=== PATIENT | female | born 1930 | race Caucasian/White ===

== ENCOUNTER 2017-03-29 15:58 | Emergency (ER) | payer MEDICARE, OTHER ==
[2017-03-29 17:03] VITALS: BP 178/83
== END 2017-03-29 17:27 | disposition home or self-care (01) ==
LOC: ER 15:58
PROC: 0T9B70Z Drainage of Bladder with Drainage Device, Via Natural or Artificial Opening (ICD-10-PCS; principal; 2017-03-29)
DX: Z46.6 Encounter for fitting and adjustment of urinary device (principal)

== ENCOUNTER 2017-05-04 07:01 | Emergency (ER) | payer MEDICARE, OTHER ==
--- NOTE | 2017-05-04 07:42 | ERNOTE ---
ER Female HPI Stated Complaint: CATH CAME OUT Time Seen by Provider: 05/04/17 07:34 Source: patient Exam Limitations: no limitations Immunizations: IMMUNIZATION HX Immunizations Up to Date Yes History of Influenza Vaccine Yes Hx Pneumococcal Vaccination Yes Allergies/Adverse Reactions: Allergies morphine Allergy (Verified 05/04/17 07:14) Lactose intolerant Allergy (Uncoded 05/04/17 07:14) Home Medications: HOME MEDICATIONS Gabapentin 400 mg PO HS 08/13/16 [Last Taken Unknown] Gabapentin 800 mg PO QID 08/13/16 [Last Taken Unknown] Oxybutynin Chloride [Ditropan] 10 mg PO DAILY 08/13/16 [Last Taken Unknown] Aspirin 81 mg PO DAILY 11/30/16 [Last Taken Unknown] Cyanocobalamin [Vitamin B-12] 1,000 mcg PO DAILY 05/04/17 [Last Taken Unknown] - History of Present Illness Narrative: Pt states her catheter came out. She has had a catheter since last July and has been doing well except for an occasional episode such as this. Activities at Onset: Present: sleep Review of Systems - Review of Systems Constitutional: Absent: recent illness, fever, chills Gastrointestinal/Abdominal: Present: constipation. Absent: nausea, vomiting, abdominal pain Genitourinary: Absent: pain, decreased urinary output - Patient's Past Medical History Patient History - Medical: No pertinent hx, Other Patient History - Cardiac/Respiratory: No pertinent hx Patient History - Cancer: No Hx of Cancer Patient History - Surgical Procedures: Appendectomy, Cholecystectomy, Hysterectomy, T & A, Other Patient History - Other: None - Family History Mother Family History - Cardiac/Respiratory: CHF Father Family History - Cardiac/Respiratory: CHF - Social History Living Situations: care home Psych History: No pertinent hx Does anyone smoke in the home?: No Alcohol Use: none Drug Use: none - Immunizations Immunizations Up to Date: Yes Hx Pneumococcal Vaccination: Yes History of Influenza Vaccine: Yes Physical Exam - Physical Exam General Appearance: Present: wd/wn, alert, no apparent distress Head Exam: Present: normal inspection, no evidence of injury Eye Exam: Normal inspection: bilateral Neck: Present: supple, full range of motion Respiratory: Present: no respiratory distress, no accessory muscle use Gastrointestinal/Abdominal: Present: normal bowel sounds, nontender, nondistended, soft Extremity Exam: Present: normal inspection, no edema Neurological Exam: Present: alert, oriented, normal mood/affect, no motor/ sensory deficits Skin Exam: Present: normal color, warm/dry ED Progress - Results and Orders Patient's Lab Results:: I have reviewed the patient's lab results. - Vital Signs Patient's Vital Signs:: I have reviewed the patient's vital signs. Vital Signs: Vital Signs 05/04/17 07:10 Temperature 36.5 C Pulse Rate 67 Respiratory 12 Rate Blood Pressure 175/75 O2 Sat by Pulse 93 Oximetry - Progress/Reassessment Chief Complaint: Genitourinary Problem Progress Note-Subjective: RN replaced catheter without difficulty Departure Clinical Impression: Saini catheter problem Qualifiers: Encounter type: initial encounter Qualified Code(s): T83.9XXA - Unspecified complication of genitourinary prosthetic device, implant and graft, initial encounter - Departure Disposition: Home self-care Condition: Good Instructions: Saini Catheter Care, Adult Additional Instructions: Follow up with your regular doctor as necessary. Referrals: Pacheco Bundy DO [Primary Care Provider] -
[2017-05-04 08:15] VITALS: BP 164/68
== END 2017-05-04 08:16 | disposition home or self-care (01) ==
LOC: ER 07:01
PROC: 0T9B70Z Drainage of Bladder with Drainage Device, Via Natural or Artificial Opening (ICD-10-PCS; principal; 2017-05-04)
DX: T83.9XXA Unspecified complication of genitourinary prosthetic device, implant and graft, initial encounter (principal)

== ENCOUNTER 2017-05-28 09:44 | Emergency (ER) | payer MEDICARE, OTHER ==
[2017-05-28] MEDS ORDERED: SULFAMETHOXAZOLE/TRIMETHOPRIM 1 TAB TABLET PO ONE (10:31)
[2017-05-28] MEDS ORDERED: SULFAMETHOXAZOLE/TRIMETHOPRIM 1 TAB TABLET ONE (10:33)
--- NOTE | 2017-05-28 10:42 | ERNOTE ---
ER Female HPI Date of Service: 05/28/17 Stated Complaint: CATH CHANGE Presenting Symptoms: dysuria Time Seen by Provider: 05/28/17 10:08 Source: patient, RN notes reviewed, past records Exam Limitations: no limitations Immunizations: IMMUNIZATION HX Immunizations Up to Date Yes History of Influenza Vaccine Yes Hx Pneumococcal Vaccination Yes Allergies/Adverse Reactions: Allergies morphine Allergy (Verified 05/28/17 09:54) Lactose intolerant Allergy (Uncoded 05/28/17 09:54) Home Medications: HOME MEDICATIONS Gabapentin 400 mg PO HS 08/13/16 [Last Taken Unknown] Gabapentin 800 mg PO QID 08/13/16 [Last Taken Unknown] Oxybutynin Chloride [Ditropan] 10 mg PO DAILY 08/13/16 [Last Taken Unknown] Aspirin 81 mg PO DAILY 11/30/16 [Last Taken Unknown] Cyanocobalamin [Vitamin B-12] 1,000 mcg PO DAILY 05/04/17 [Last Taken Unknown] HYDROcodone/ACETAMINOPHEN [[place] 10-325 Tablet] 1 each PO DAILY 05/28/17 [Last Taken Unknown] Naproxen Sodium 220 mg PO HS 05/28/17 [Last Taken Unknown] Sulfamethoxazole/Trimethoprim [Bactrim Ds] 1 tab PO BID #20 tab 05/28/17 [Last Taken Unknown] - History of Present Illness Narrative: 86 year old female brought to the ED from the [facility] to have her Saini catheter changed. After the [facility] was contacted by nursing staff, it was discovered that a UA was done yesterday because the patient had been reporting dysuria. Her preliminary culture shows gram negative bacilli. Aside from the dysuria she is reporting vague abdominal discomfort. Prior Abdominal Problems: Present: similar symptoms Prior Treatment: Absent: recently seen, currently on antibiotics Review of Systems - Review of Systems Constitutional: Absent: recent illness, fever, chills, malaise EYE: Present: no symptoms reported ENT: Present: no symptoms reported Respiratory: Absent: shortness of breath, cough Cardiology: Absent: chest pain, edema Gastrointestinal/Abdominal: Absent: nausea, vomiting, diarrhea, constipation Genitourinary: Present: dysuria. 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, paraplegia Patient History - Cardiac/Respiratory: Valvular Heart Disease Patient History - Cancer: No Hx of Cancer Patient History - Surgical Procedures: Appendectomy, Cholecystectomy, Hysterectomy, T & A, Other Patient History - Other: None LMP (females 10-50): Menopausal - Family History Mother Family History - Cardiac/Respiratory: CHF Father Family History - Cardiac/Respiratory: CHF - Social History Living Situations: assisted living Psych History: No pertinent hx Does anyone smoke in the home?: No Smoking Status: Never smoker Alcohol Use: none Drug Use: none - Immunizations Immunizations Up to Date: Yes Hx Pneumococcal Vaccination: Yes History of Influenza Vaccine: Yes Physical Exam - Physical Exam General Appearance: Present: wd/wn, alert, no apparent distress Respiratory: Present: no respiratory distress, normal breath sounds, no accessory muscle use, lungs clear Cardiovascular/Chest: Present: regular rate, rhythm, no murmur, normal peripheral pulses Gastrointestinal/Abdominal: Present: normal bowel sounds, nontender, nondistended, soft Neurological Exam: Present: alert, oriented, normal mood/affect Skin Exam: Present: normal color, warm/dry ED Progress - Vital Signs Patient's Vital Signs:: I have reviewed the patient's vital signs. Vital Signs: Vital Signs 05/28/17 09:50 Temperature 36.2 C L Pulse Rate 81 Respiratory 12 Rate Blood Pressure 166/65 O2 Sat by Pulse 93 Oximetry - Progress/Reassessment Chief Complaint: Genitourinary Problem Progress:: Improved Progress Note-Subjective: 05/28/17 10:37 Saini catheter changed. Prelim UC shows gram negative bacilli - last culture in 08/07 grew e.coli that was resistant to Cipro, but sensitive to Bactrim which has been started here. Dr. Bundy's office contacted regarding results/ treatment for the UA he had ordered and for a standing order to have her Saini changed in the [facility] rather than having to come to the ED. Departure Clinical Impression: Urinary catheter (Saini) change required Urinary tract infection associated with indwelling urethral catheter Qualifiers: Encounter type: initial encounter Qualified Code(s): T83.511A - Infection and inflammatory reaction due to indwelling urethral catheter, initial encounter; N39.0 - Urinary tract infection, site not specified; N39.0 - Urinary tract infection, site not specified - Departure Disposition: [facility] self-care Condition: Good Instructions: Catheter-Associated Urinary Tract Infection FAQs - VINCENT Additional Instructions: Continue your routine medications Have your urine retested after your antibiotic is finished Dr. Bundy's office was contacted for an order to have your catheter changes done in the [facility] Referrals: Pacheco Bundy, DO [Primary Care Provider] - Prescriptions: Sulfamethoxazole/Trimethoprim [Bactrim Ds] 1 tab PO BID #20 tab
[2017-05-28 10:54] VITALS: BP 164/62
== END 2017-05-28 10:54 | disposition home or self-care (01) ==
LOC: ER 09:44
PROC: 0T2BX0Z Change Drainage Device in Bladder, External Approach (ICD-10-PCS; principal; 2017-05-28)
DX: Z46.6 Encounter for fitting and adjustment of urinary device (principal); T83.511A Infection and inflammatory reaction due to indwelling urethral catheter, initial encounter; D39.0 Neoplasm of uncertain behavior of uterus; G37.9 Demyelinating disease of central nervous system, unspecified; G82.20 Paraplegia, unspecified; I35.8 Other nonrheumatic aortic valve disorders

== ENCOUNTER 2017-06-05 10:01 | Emergency (ER) | payer MEDICARE, OTHER ==
--- NOTE | 2017-06-05 10:29 | ERNOTE ---
Medical Problem HPI - General Time Seen by Provider: 06/05/17 10:26 Source: patient Exam Limitations: no limitations - Immun/Allergies/Home Medications Immunizations: IMMUNIZATION HX Immunizations Up to Date Yes History of Influenza Vaccine Yes Hx Pneumococcal Vaccination Yes Allergies/Adverse Reactions: Allergies morphine Allergy (Verified 06/05/17 10:30) Lactose intolerant Allergy (Uncoded 06/05/17 10:30) Home Medications: HOME MEDICATIONS Gabapentin 400 mg PO HS 08/13/16 [Last Taken Unknown] Gabapentin 800 mg PO QID 08/13/16 [Last Taken Unknown] Oxybutynin Chloride [Ditropan] 10 mg PO DAILY 08/13/16 [Last Taken Unknown] Aspirin 81 mg PO DAILY 11/30/16 [Last Taken Unknown] Cyanocobalamin [Vitamin B-12] 1,000 mcg PO DAILY 05/04/17 [Last Taken Unknown] HYDROcodone/ACETAMINOPHEN [[place] 10-325 Tablet] 1 each PO DAILY 05/28/17 [Last Taken Unknown] Naproxen Sodium 220 mg PO HS 05/28/17 [Last Taken Unknown] Sulfamethoxazole/Trimethoprim [Bactrim Ds] 1 tab PO BID #20 tab 05/28/17 [Last Taken Unknown] Nitrofurantoin/Nitrofuran Mac [Macrobid] 100 mg PO Q12H 10 Days #20 cap [Last Taken Unknown] - History of Present History Narrative: pt has an indwelling catheter and has had some discomfort in the catheter site in the perineum. Denies any burning on urination. She is on Bactrim DS. She states her "bottom" hurts when she leans forward only. Denies any fevers, chills nausea or vomiting. 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 Patient History - Cardiac/Respiratory: Valvular Heart Disease Patient History - Cancer: No Hx of Cancer Patient History - Surgical Procedures: Appendectomy, Cholecystectomy, Hysterectomy, T & A, Other Patient History - Other: None - Family History Mother Family History - Cardiac/Respiratory: CHF Father Family History - Cardiac/Respiratory: CHF - Social History Psych History: No pertinent hx - Immunizations Immunizations Up to Date: Yes Hx Pneumococcal Vaccination: Yes History of Influenza Vaccine: Yes Physical Exam - Physical Exam General Appearance: Present: wd/wn, alert, no apparent distress Head Exam: Present: normal inspection, no evidence of injury Ears, Nose, Throat: Present: normal ENT inspection Neck: Present: normal inspection Respiratory: Present: no respiratory distress, normal breath sounds, no accessory muscle use, chest nontender, lungs clear Cardiovascular/Chest: Present: regular rate, rhythm, no murmur, normal peripheral pulses Gastrointestinal/Abdominal: Present: normal bowel sounds, nontender, nondistended, soft, no organomegaly. Absent: tenderness Pelvic Exam: Present: other - examination of the perineum reveals that the Saini catheter is in the proper area the site of insertion appears slightly hyperemic but there is no discharge there is no anomalies noted. There are no lesions. Back Exam: Present: normal inspection, no CVA tenderness Plan - Plan Plan: This patient's urinalysis reveals that the patient has positive nitrites while on a sulfa antibiotic. At this time to sulfa antibiotic will be stopped patient will be begun on Macrobid 100 mg 1 by mouth twice a day and follow-up with her primary care physician. Departure Clinical Impression: UTI (urinary tract infection) Qualifiers: Urinary tract infection type: site unspecified Hematuria presence: with hematuria Qualified Code(s): N39.0 - Urinary tract infection, site not specified ; R31.9 - Hematuria, unspecified; R31.9 - Hematuria, unspecified - Departure Disposition: Home self-care Condition: Good Instructions: Urinary Tract Infection, Adult, [id number] Referrals: Pacheco Bundy DO [Primary Care Provider] - Prescriptions: Nitrofurantoin/Nitrofuran Mac [Macrobid] 100 mg PO Q12H 10 Days #20 cap
[2017-06-05 11:05] LABS: Urine Bilirubin Negative (NEGATIVE); Urine Blood 50 /ul (NEGATIVE); Urine Ketone Negative (NEGATIVE); Urine Protein Negative (NEGATIVE); Urine Urobilinogen Normal (NORMAL)
[2017-06-05 11:20] LABS: Urine Appearance Clear; Urine Color Yellow; Urine Nitrite Positive (NEGATIVE)
[2017-06-05 11:21] LABS: Urine Bacteria TRACE
[2017-06-05 11:39] VITALS: BP 132/60
== END 2017-06-05 11:36 | disposition home or self-care (01) ==
LOC: ER 10:01
DX: N39.0 Urinary tract infection, site not specified (principal); R31.9 Hematuria, unspecified

== ENCOUNTER 2017-08-28 09:31 | Emergency (ER) | payer MEDICARE, OTHER ==
[2017-08-28 09:41] VITALS: BP 159/75
--- NOTE | 2017-08-28 09:48 | ERNOTE ---
ER Female HPI Stated Complaint: CATH CHANGE Presenting Symptoms: other - patient inadvertently pulled out her Saini catheter Time Seen by Provider: 08/28/17 09:41 Source: patient, family Exam Limitations: no limitations Immunizations: IMMUNIZATION HX Immunizations Up to Date Yes History of Influenza Vaccine Yes Hx Pneumococcal Vaccination Yes Allergies/Adverse Reactions: Allergies morphine Allergy (Verified 08/28/17 09:37) Lactose intolerant Allergy (Uncoded 08/28/17 09:37) Home Medications: HOME MEDICATIONS Gabapentin 400 mg PO HS 08/13/16 [Last Taken Unknown] Gabapentin 800 mg PO QID 08/13/16 [Last Taken Unknown] Oxybutynin Chloride [Ditropan] 10 mg PO DAILY 08/13/16 [Last Taken Unknown] Aspirin 81 mg PO DAILY 11/30/16 [Last Taken Unknown] Cyanocobalamin [Vitamin B-12] 1,000 mcg PO DAILY 05/04/17 [Last Taken Unknown] HYDROcodone/ACETAMINOPHEN [[place] 10-325 Tablet] 1 each PO DAILY 05/28/17 [Last Taken Unknown] Naproxen Sodium 220 mg PO HS 05/28/17 [Last Taken Unknown] - History of Present Illness Timing: Present: constant Radiation: Present: none Activities at Onset: Present: none Sexual [employer] History: Present: not active Associated Symptoms: Present: denies symptoms Review of Systems - Review of Systems Constitutional: Present: See HPI EYE: Present: no symptoms reported ENT: Present: no symptoms reported Respiratory: Present: no symptoms reported Cardiology: Present: no symptoms reported Gastrointestinal/Abdominal: Present: no symptoms reported Genitourinary: Present: See HPI Musculoskeletal: Present: no symptoms reported Skin: Present: no symptoms reported Neurological: Present: no symptoms reported Endocrine: Present: no symptoms reported Hematologic/Lymphatic: Present: no symptoms reported Psych: Present: no symptoms reported - Patient's Past Medical History Patient History - Medical: Osteoarthritis, Osteoporosis, UTI'S, Other - transverse myelitis, 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 Patient History - Cardiac/Respiratory: Valvular Heart Disease Patient History - Cancer: No Hx of Cancer Patient History - Surgical Procedures: Appendectomy, Cholecystectomy, Hysterectomy, T & A, Other Patient History - Other: None LMP (females 10-50): Menopausal - Family History Mother Family History - Cardiac/Respiratory: CHF Father Family History - Cardiac/Respiratory: CHF - Social History Abuse History: No History of abuse Psych History: No pertinent hx Smoking Status: Never smoker Have you smoked in the past 12 months: No Do you dip or chew tobacco: No Alcohol Use: none Drug Use: none - Immunizations Immunizations Up to Date: Yes Hx Pneumococcal Vaccination: Yes History of Influenza Vaccine: Yes Physical Exam - Physical Exam General Appearance: Present: wd/wn, alert, no apparent distress Head Exam: Present: normal inspection Eye Exam: Normal inspection: bilateral, PERRL: bilateral Ears, Nose, Throat: Present: normal ENT inspection, H, normal pharynx Neck: Present: normal inspection, nontender Respiratory: Present: no respiratory distress, normal breath sounds, no accessory muscle use, chest nontender, lungs clear Cardiovascular/Chest: Present: regular rate, rhythm, no murmur, normal peripheral pulses Gastrointestinal/Abdominal: Present: normal bowel sounds, nontender, nondistended, soft, no organomegaly Rectal Exam: Present: deferred Back Exam: Present: normal inspection, normal range of motion Extremity Exam: Present: normal inspection, non-tender, no edema, normal range of motion Neurological Exam: Present: alert, oriented, normal mood/affect Skin Exam: Present: normal color, warm/dry Lymphatic Exam: Present: no adenopathy ED Progress - Vital Signs Patient's Vital Signs:: I have reviewed the patient's vital signs. Vital Signs: Vital Signs 08/28/17 09:38 Temperature 36.2 C L Pulse Rate 94 Respiratory 18 Rate Blood Pressure 159/75 O2 Sat by Pulse 94 Oximetry - Progress/Reassessment Chief Complaint: Genitourinary Problem Plan - Plan Plan: Patient had a new Saini catheter put in place with the caveat to have her be a little more careful with the catheter in the future. Departure Clinical Impression: Saini catheter problem Qualifiers: Encounter type: initial encounter Qualified Code(s): T83.9XXA - Unspecified complication of genitourinary prosthetic device, implant and graft, initial encounter - Departure Disposition: Home self-care Condition: Good Instructions: Saini Catheter Care, Adult Referrals: Pacheco Bundy DO [Primary Care Provider] -
== END 2017-08-28 10:11 | disposition home or self-care (01) ==
LOC: ER 09:31
PROC: 0T9B70Z Drainage of Bladder with Drainage Device, Via Natural or Artificial Opening (ICD-10-PCS; principal; 2017-08-28)
DX: T83.098A Other mechanical complication of other urinary catheter, initial encounter (principal); Z87.440 Personal history of urinary (tract) infections

== ENCOUNTER 2020-02-03 21:45 | Inpatient (IN) ==
--- NOTE | 2020-02-03 21:49 | ERNOTE ---
Abdominal HPI - General Chief Complaint: Abdominal Pain Time Seen by Provider: 02/03/20 21:49 Source: patient, EMS notes reviewed Exam Limitations: no limitations - Immun/Allergies/Home Medications Immunizatons: IMMUNIZATION HX Immunizations Up to Date Yes History of Influenza Vaccine Yes Hx Pneumococcal Vaccination Yes Allergies/Adverse Reactions: Allergies morphine Allergy (Verified 02/03/20 21:52) Lactose intolerant Allergy (Intermediate, Uncoded 02/03/20 21:52) Per patient.lb Home Medications: HOME MEDICATIONS Aspirin [Aspirin EC] 81 mg PO DAILY 01/22/18 [Last Taken Unknown] cranberry 400 mg capsule 400 mg PO DAILY 05/30/18 [Last Taken Unknown] lactobacillus combination no.8 3 billion cell capsule 3,000 mmu cells PO DAILY 09/21/19 [Last Taken Unknown] multivitamin 1 tab PO DAILY 09/21/19 [Last Taken Unknown] gabapentin 400 mg capsule 400 mg PO HS #1 cap 01/05/20 [Last Taken Unknown] gabapentin 800 mg tablet 800 mg PO QID #1 tab 01/05/20 [Last Taken Unknown] sennosides 8.6 mg tablet 4.3 mg PO HS tab 01/25/20 [Last Taken Unknown] - History of Present Illness Narrative: Patient is an 89-year-old white female, resident of the [place], with multiple past medical issues and multiple ER visits in the past, began with significant dizziness and right lower quadrant pain today. Her symptoms progressively got worse throughout the day and was associated with some chest discomfort and shortness of breath so she called EMS who transported her to our ER. In route they noted she was 86% on room air that went to 97% on 2 L nasal cannula. Her in the ER she was 92% on room air. Heart rate was in the 100s and patient did appear pale though was alert and oriented. She denies any fevers or chills, cough, diarrhea, hematochezia or melena. She has had more heartburn lately. She has tested positive for UTI twice in the last couple weeks and is been on 2 different antibiotics the latest being Macrobid. She has had an indwelling catheter for the last 5 years. She is on no PPI or H2 blockers and she does take an aspirin on a regular basis. Timing: getting worse Quality: moderate Activities at Onset: none Modifying Factors - (Improves): Present: rest, lying down Modifying Factors - (Worsens): Present: sitting up, movement Associated Symptoms: Present: chest pain, heartburn, nausea, shortness of breath, weakness. Absent: diaphoresis, diarrhea-gross blood, diarrhea-mucous, fever/chills, vomiting, swelling/mass in abdomen, syncope Prior Abdominal Problems: Present: similar symptoms Prior Treatment: Present: recently seen, treated by physician, currently on antibiotics Review of Systems - Review of Systems Constitutional: Absent: fever, chills EYE: Absent: blurred vision, double vision ENT: Absent: ear pain, nose congestion, sore throat Respiratory: Present: shortness of breath. Absent: cough, orthopnea, wheezing, stridor, other Cardiology: Present: chest pain, palpitations. Absent: syncope, edema, claudication Gastrointestinal/Abdominal: Present: nausea, constipation, abdominal pain. Absent: vomiting, diarrhea Genitourinary: Absent: dysuria, hematuria, decreased urinary output Musculoskeletal: Absent: back pain, muscle pain, muscle stiffness Skin: Absent: rash, dryness Neurological: Present: dizziness/light-headedness, weakness, tingling. 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/2016 [facility] Mitral valve disorder (Chronic) Onset Date: 1993 prolapse Lesion of lumbar spine (Chronic) Onset Date: Unknown Arthritis (Chronic) Onset Date: 2011 Hypervitaminosis D (Chronic) Onset Date: 07/2017 Hemorrhoids (Chronic) Onset Date: Unknown 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 Chest wall contusion (Acute) Urinary tract infection (Chronic) Lower extremity weakness (Chronic) Weakness of lower extremity (Chronic) Spinal cord lesion (Acute) Saini catheter problem (Acute) Urinary tract infection associated with indwelling urethral catheter (Acute) Urinary catheter (Saini) change required (Acute) UTI symptoms (Acute) hx of hemorrhoid surgery (Acute) Dislodged Saini catheter (Acute) Paraplegia (Chronic) Onset Date: Unknown Osteoporosis (Chronic) Onset Date: Unknown Neurogenic bowel (Chronic) Onset Date: Unknown Macular degeneration (Chronic) Onset Date: Unknown Kyphosis (Chronic) Onset Date: Unknown IBS (irritable bowel syndrome) (Chronic) Onset Date: Unknown Hyperlipidemia (Chronic) Onset Date: Unknown UTI (urinary tract infection) (Chronic) Onset Date: Unknown Surgical History: Surgical History (Last Reviewed 02/03/20 @ 22:19 by Bird Nicolas MD) FHx: FLETCHER-BSO (total abdominal hysterectomy and bilateral salpingo-oophorectomy) Onset Date: ~1986 H/O hemorrhoidectomy Onset Date: 1991 H/O laminectomy Onset Date: Unknown History of YAG laser capsulotomy of lens Onset Date: ~2008 Hx of appendectomy Onset Date: ~1986 Hx of cataract surgery Onset Date: ~2007 Hx of cholecystectomy Onset Date: 03/12/09 Loss of teeth due to extraction Onset Date: Unknown Family History: Family History (Last Reviewed 02/03/20 @ 22:19 by Bird Nicolas MD) Father , age 86 COPD (chronic obstructive pulmonary disease) CHF (congestive heart failure) Mother , age 83 CHF (congestive heart failure) Diabetes Social History: (Last Reviewed 02/03/20 @ 22:19 by Bird Nicolas MD) Social History: snf: Yes Marital status: lives independently: No household members: spouse current occupational status: retired Highest education level completed: high school graduate Service: No Tobacco: Smoking Status: Never smoker second hand exposure: No Alcohol: alcohol intake: never Substance Use: substance use type: does not use Dietary Habits: caffeine: Yes caffeine comment: everyday Exercise: Physical activity type: none frequency: does not exercise Physical Exam - Physical Exam General Appearance: Present: wd/wn, alert, mild distress, other - Pale-appearing Head Exam: Present: normal inspection, no evidence of injury Eye Exam: Normal inspection: bilateral, PERRL: bilateral, EOMI: bilateral, Conjunctivae pale: bilateral Ears, Nose, Throat: Present: normal except -, dry mucous membranes Neck: Present: supple Respiratory: Present: no respiratory distress, normal breath sounds, no accessory muscle use, chest nontender, lungs clear Cardiovascular/Chest: Present: tachycardia, systolic murmur - 5/6 right upper sternal border Gastrointestinal/Abdominal: Present: normal bowel sounds, soft, no organomegaly, tenderness - Mild right lower quadrant, distended. Absent: guarding, rebound Rectal Exam: Present: nontender, normal rectal tone, black stool - That is firm, but a paucity of it in the rectum, hemorrhoids, other - Heme positive stool. Absent: blood-streaked stool Back Exam: Present: normal inspection Extremity Exam: Present: normal except -, extremity edema - 2+ pitting edema Neurological Exam: Present: alert, oriented, no motor/sensory deficits, other - Tired appearing and dysphoric Skin Exam: Present: cool/dry, pallor Progress - Results and Orders Patient's Lab Results:: I have reviewed the patient's lab results. Results and Orders: Hemoglobin is critical at 4.1 Hemoccult positive Laboratory Tests 02/03/20 22:00 Urine Color Yellow Urine Appearance Slightly cloudy Urine pH 7.0 Ur Specific [place] 1.015 Urine Protein Negative Urine Glucose (UA) Negative Urine Ketones Negative Urine Blood Negative Urine Nitrate Negative Urine Bilirubin Negative Urine Urobilinogen Normal Ur Leukocyte Esterase 75 H Urine RBC None seen Urine WBC 0-5 Ur Epithelial Cells 0-5 Urine Bacteria 1+ H Urine Yeast Moderate - 2+ H Urine Culture Comments Culture to follow Laboratory Tests 02/03/20 22:00 Sodium 138 Plasma Sodium 139 Potassium 3.8 Chloride 106 Carbon Dioxide 23.4 L Anion Gap 12.4 BUN 17 D Creatinine 0.80 Est GFR (Non-Af Amer) 72 D BUN/Creatinine Ratio 21.3 Random Glucose 145 H Calcium 8.2 Calcium Adj for Albumin 8.9 Total Bilirubin 0.1 AST 15 ALT 8 L Alkaline Phosphatase 93 Troponin I Less than 0.017 Total Protein 6.4 Albumin 2.7 L - Vital Signs Patient's Vital Signs:: I have reviewed the patient's vital signs. - EKG EKG #1 EKG: NSR, nonspecific ST T wave changes EKG read: Interp. by me - X-Ray X-Ray #1 X-Ray: chest Interpretation: Interp. 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 No consolidation seen. - Progress/Reassessment Chief Complaint: Dizziness Progress:: Unchanged - Transfer of Care Expected Disposition: Admit Plan - Plan Plan: Given patient hemoglobin of 4.1, heme positive stools and melena, but overall stable vitals feel that this is more of a chronic blood loss anemia. We will check her ferritin and iron levels. Plan is to start transfusing her blood, but will need to be in the hospital for monitoring and transfusion. She does have possible UTI findings but she has been on multiple antibiotics and has indwelling catheter so this may be more chronic in nature. Would not do any antibiotics at this time but would await urine culture for guidance. Case was discussed with Dr. Painter who is agreeable for admission to the hospital for blood transfusion and monitoring. Departure Clinical Impression: Anemia Qualifiers: Anemia type: iron deficiency Iron deficiency anemia type: chronic blood loss Qualified Code(s): D50.0 - Iron deficiency anemia secondary to blood loss (chronic) GI bleed Qualifiers: GI bleed type/associated pathology: melena Qualified Code(s): K92.1 - Melena - Departure Disposition: Short Term Hospital Inpatient Condition: Fair
[2020-02-03 22:04] LABS: Mean Cell Volume 81.9 fl (78-100); Mean Corpuscular Hemoglobin 21.8 pg (27-31); Mean Corpuscular Hgb Conc 26.6 g/dl (32-36); Neutrophil # 6.6 K/mm3 (1.3-6.0); Neutrophil % 68.4 % (42-75.0); Platelet Count 347 K/mm3 (150-450); Red Blood Count 1.88 M/mm3 (4.2-5.4); Red Cell Distribution Width 16.1 % (11.5-14.0); White Blood Count 9.7 K/mm3 (4.0-10.5)
[2020-02-03 22:09] LABS: Hematocrit 15.4 % (37.0-47.0); Hemoglobin 4.1 gm/dL (12.5-16.0)
[2020-02-03 22:22] LABS: ALT 8 U/L (19-67); AST 15 U/L (0-48); Albumin * 2.7 gm/dl (3.4-5.0); Alkaline Phosphatase * 93 U/L (50-170); Anion Gap 12.4 mmol/L (6.8-13.8); BUN/Creatinine Ratio 21.3 (9.0-21.6); Bilirubin, Total 0.1 mg/dL (0.0-1.1); Blood Urea Nitrogen 17 mg/dL (3-23); Ca. Corrected For Albumin 8.9 mg/dL (8.4-10.2); Calcium * 8.2 mg/dL (7.9-10.9); Carbon Dioxide 23.4 mmol/L (24-32.6); Chloride 106 mmol/L (97-106); Glucose * 145 mg/dL (70-110); Potassium 3.8 mmol/L (3.4-4.6); Sodium 138 mmol/L (132-142); Total Protein 6.4 gm/dL (6.2-8.2); Troponin I Less than 0.017 ng/mL (0.00-0.10)
[2020-02-03] MEDS ORDERED: PANTOPRAZOLE SODIUM 40 MG/100 ML PIGGYBACK IV ONE (22:23)
[2020-02-03 22:28] LABS: Urine Appearance Slightly Cloudy (CLEAR); Urine Bilirubin Negative (NEGATIVE); Urine Blood Negative /ul (NEGATIVE); Urine Color Yellow; Urine Ketone Negative (NEGATIVE); Urine Nitrite Negative (NEGATIVE); Urine Protein Negative (NEGATIVE); Urine Specific Gravity 1.015 SP.GR. (1.005-1.010); Urine Urobilinogen Normal (NORMAL); Urine WBC 0-5 /hpf (0-5)
[2020-02-03 22:29] LABS: Urine Bacteria 1+; Urine RBC None Seen /hpf (0-5); Urine Yeast Moderate - 2+
[2020-02-03 23:22] LABS: Iron 9 mcg/dL (35-120); Transferrin Sat. (% Sat.) 2 % (15-55)
[2020-02-03] MEDS ORDERED: FUROSEMIDE 10 MG/ML VIAL IV ONE (23:40)
[2020-02-04] MEDS: GABAPENTIN 400 MG CAPSULE PO SCH ×5 (02:51→22:14)
[2020-02-04] MEDS ORDERED: ACETAMINOPHEN 325 MG TABLET PO PRN (03:50)
[2020-02-04] MEDS: HYDROmorphone HCL 1 MG/ML DISP.SYRIN IV PRN ×3 (07:02→14:49)
[2020-02-04] MEDS ORDERED: ACETAMINOPHEN 500 MG TABLET PO PRN (10:24)
[2020-02-04] MEDS ORDERED: DIATRIZOATE MEGLUMINE, SODIUM 30 ML BTL PO ONE (10:31)
[2020-02-04] MEDS: LACTOBACILLUS ACIDOPHILUS 1 EACH CAPSULE PO SCH (10:49)
[2020-02-04] MEDS: MULTIVITAMINS 1 CAP CAPSULE PO SCH (10:50)
[2020-02-04] MEDS: ONDANSETRON HCL/PF 2 MG/ML VIAL IV PRN (10:58)
[2020-02-04] MEDS: PANTOPRAZOLE SODIUM 40 MG in NORMAL SALINE 100 ML IV SCH ×2 (11:01→23:44)
--- NOTE | 2020-02-04 11:02 | HP ---
Chief Complaint - Chief Complaint Date of Service: 02/04/20 Time of Service: 10:34 Chief Complaint: I have right-sided abdominal pain, dizziness and weakness History of Present Illness: 89-year-old female with past medical history of uterine cancer treated with radiation, neurogenic bladder, indwelling catheter status, hyperlipidemia, anemia of chronic disease, osteoporosis, and macular degeneration was brought to the ER by EMS for evaluation of right upper quadrant and right flank pain accompanied by dizziness, weakness, and paleness. Patient is a poor historian at the moment due to intense pain and and the drowsiness from pain medications administered an effort to control her pain. She is not able to recall shirley events to help shape the diagnosis and the cause for her symptoms. However from what I was able to gather she reports that yesterday morning after a bowel movement she developed intense right flank pain that radiated to the right upper and lower quadrants. The pain became accompanied by abdominal bloating but she denied nausea or vomiting. She also denied fever or chills. When asked if she had this pain before she says she has had it off and on for multiple years but has never been this intense. Patient currently lives alone so she called EMS herself when her symptoms worsened. When she arrived to the ER labs revealed a hemoglobin of 4.1 however the patient showed no evidence of ongoing bleeding. Abdominal CT was not done in the ER because the ER physician said his impression was that the anemia was due to more of a chronic condition rather than an acute condition. Iron stores were low making a microcytic anemia likely and the patient also had a positive Hemoccult indicating that this was due to GI bleed. There was further discussion about the abdominal CT in and it was agreed that we would admit the patient for transfusion of PRBCs and evaluate her symptoms further before deciding on the imaging. Therefore she was admitted and 2 units of PRBCs with an extra unit on hold was ordered, however due to certain antibodies in the patient's blood cross and type was difficult, therefore the order for PRBCs had to be sent to the blood bank in [place] in order to get a match. We will transfuse her as soon as the PRBCs become available. 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/2016 [facility] Mitral valve disorder (Chronic) Onset Date: 1993 prolapse Lesion of lumbar spine (Chronic) Onset Date: Unknown Arthritis (Chronic) Onset Date: 2011 Hypervitaminosis D (Chronic) Onset Date: 07/2017 Hemorrhoids (Chronic) Onset Date: Unknown 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 Chest wall contusion (Acute) Urinary tract infection (Chronic) Lower extremity weakness (Chronic) Weakness of lower extremity (Chronic) Spinal cord lesion (Acute) Saini catheter problem (Acute) Urinary tract infection associated with indwelling urethral catheter (Acute) Urinary catheter (Saini) change required (Acute) UTI symptoms (Acute) hx of hemorrhoid surgery (Acute) Dislodged Saini catheter (Acute) Paraplegia (Chronic) Onset Date: Unknown Osteoporosis (Chronic) Onset Date: Unknown Neurogenic bowel (Chronic) Onset Date: Unknown Macular degeneration (Chronic) Onset Date: Unknown Kyphosis (Chronic) Onset Date: Unknown IBS (irritable bowel syndrome) (Chronic) Onset Date: Unknown Hyperlipidemia (Chronic) Onset Date: Unknown UTI (urinary tract infection) (Chronic) Onset Date: Unknown Surgical History: Surgical History (Last Reviewed 02/04/20 @ 00:17 by Nika Sherman RN) FHx: FLETCHER-BSO (total abdominal hysterectomy and bilateral salpingo-oophorectomy) Onset Date: ~1986 H/O hemorrhoidectomy Onset Date: 1991 H/O laminectomy Onset Date: Unknown History of YAG laser capsulotomy of lens Onset Date: ~2008 Hx of appendectomy Onset Date: ~1986 Hx of cataract surgery Onset Date: ~2007 Hx of cholecystectomy Onset Date: 03/12/09 Loss of teeth due to extraction Onset Date: Unknown Family History: Family History (Last Reviewed 02/04/20 @ 00:17 by Nika Sherman RN) Father , age 86 COPD (chronic obstructive pulmonary disease) CHF (congestive heart failure) Mother , age 83 CHF (congestive heart failure) Diabetes Social History: (Last Reviewed 02/04/20 @ 00:17 by Nika Sherman RN) Social History: intermediate: Yes Marital status: lives independently: No household members: spouse current occupational status: retired Highest education level completed: high school graduate Service: No Tobacco: Smoking Status: Never smoker second hand exposure: No Alcohol: alcohol intake: never Substance Use: substance use type: does not use Dietary Habits: caffeine: Yes caffeine comment: everyday Exercise: Physical activity type: none frequency: does not exercise Peds Patient Hx - Developmental: No Pertinent Hx Peds Patient Hx - Medical: No Pertinent Hx Peds Patient Hx - Cardiac/Respiratory: No Pertinent Hx Peds Patient Hx - Surgical: No Surgical History Patient History - Cancer: No Hx of Cancer Review Of Systems (GEN) - Review of Systems Generalized/Overall Review: Present: Weakness, Fatigue EENTM: Present: No Symptoms Reported Respiratory: Present: Shortness of Breath Cardiac: Present: No Symptoms Reported Abdominal: Present: Abdominal Pain - Right upper and lower quadrant and right flank pain, Other - Bloating Genitourinary: Present: No Symptoms Reported Musculoskeletal: Present: No Symptoms Reported Neurological: Present: No Symptoms Reported Skin: Present: Change in Color - Generalized paleness Endocrine: Present: No Symptoms Reported Immunizations: IMMUNIZATION HX Immunizations Up to Date Yes History of Influenza Vaccine Yes Hx Pneumococcal Vaccination Yes Allergies/Adverse Reactions: Allergies Allergy/AdvReac Type Severity Reaction Status Date / Time morphine Allergy Verified 02/03/20 21:52 Lactose intolerant Allergy Intermediate Uncoded 02/03/20 21:52 Home Medications: HOME MEDICATIONS Aspirin [Aspirin EC] 81 mg PO DAILY 01/22/18 [Last Taken 02/03/20] cranberry 400 mg capsule 400 mg PO DAILY 05/30/18 [Last Taken 02/03/20] lactobacillus combination no.8 3 billion cell capsule 3,000 mmu cells PO DAILY 09/21/19 [Last Taken 02/03/20] multivitamin 1 tab PO DAILY 09/21/19 [Last Taken 02/03/20] gabapentin 400 mg capsule 400 mg PO HS #1 cap 01/05/20 [Last Taken 02/03/20] gabapentin 800 mg tablet 800 mg PO QID #1 tab 01/05/20 [Last Taken 02/03/20] sennosides 8.6 mg tablet 4.3 mg PO HS tab 01/25/20 [Last Taken 02/03/20] Nitrofurantoin Macrocrystal [Nitrofurantoin] 100 mg PO BID 02/04/20 [Last Taken 06/13/20] Exam - Exam Vital Signs: Vital Signs - Last Taken Temp 36.6 C 02/04/20 06:00 Pulse 89 02/04/20 06:00 Resp 16 02/04/20 06:00 BP 114/47 02/04/20 06:00 Pulse Ox 93 02/04/20 06:00 Constitutional: Present: Alert, Oriented x3, Cooperative, Mild distress, Lethargic, Elderly ENT Exam: Present: normal ENT inspection, hearing grossly normal, pharynx normal, TMs normal Eye Exam: bilateral eye: normal inspection, PERRL, EOMI Neck: Present: non-tender, full range of motion, supple, normal inspection, trachea midline Back Exam: Present: normal inspection, no CVA tenderness, no vertebral tenderness Respiratory: Present: chest non-tender, lungs clear, normal breath sounds, no respiratory distress, no accessory muscle use Cardiovascular/Chest: Present: normal peripheral pulses, regular rate, rhythm, no chest tenderness, no edema, no gallop, no JVD, no murmur, no rub Peripheral Pulses: carotid (R): 3+, carotid (L): 3+, dorsalis-pedis (R): 2+, dorsalis-pedis (L): 2+ Abdomen: Present: soft, no hepatospenomegaly, obese, tender - Right upper and lower and right flank tenderness, distended, high pitched bowel sounds /Rectal: Present: Other - Indwelling catheter Extremity: Present: normal range of motion, non-tender, normal inspection, no pedal edema, no calf tenderness, normal capillary refill Skin Exam: Present: warm/dry, no cyanosis, diaphoresis, pallor Lymphatic: Present: no adenopathy Neurologic: Present: lean facilitator II-XII nml as tested, no motor/sensory deficits, alert, oriented x 3 Appearance: Present: appropriate appearance, neat, no memory impairment Eye contact: Present: cooperative, good eye contact, normal speech Thoughts: Present: normal thought pattern, no apparent hallucination Diagnostic Studies: Abnormal Lab Results 02/03/20 02/03/20 02/03/20 Range/Units 22:00 22:00 22:00 RBC 1.88 L (4.2-5.4) M/mm3 Hgb 4.1 L* D (12.5-16.0) gm/dL Hct 15.4 L* D (37.0-47.0) % MCH 21.8 L (27-31) pg MCHC 26.6 L (32-36) g/dl RDW 16.1 H (11.5-14.0) % Immature Gran % (Auto) 0.70 H (0.001-0.429) % Immature Gran # (Auto) 0.07 H (0.000-0.0310) K/mm3 Lymphocytes % 14.4 L (20-51) % Monocytes % 14.5 H (0.0-9) % Neutrophils # 6.6 H (1.3-6.0) K/mm3 Lymphocytes # 1.40 L (1.5-3.5) k/mm3 Monocytes # 1.4 H (0.0-1.0) k/mm3 Carbon Dioxide 23.4 L (24-32.6) mmol/L Random Glucose 145 H (70-110) mg/dL Iron (35-120) mcg/dL Transferrin % Sat (15-55) % ALT 8 L (19-67) U/L Albumin 2.7 L (3.4-5.0) gm/dl Ur Leukocyte Esterase 75 H (NEGATIVE) /ul Urine Bacteria 1+ H (NONE) Urine Yeast Moderate - 2+ H (NONE) Stool Occult Blood Crossmatch 02/03/20 02/03/20 02/03/20 Range/Units 22:00 22:13 22:20 RBC (4.2-5.4) M/mm3 Hgb (12.5-16.0) gm/dL Hct (37.0-47.0) % MCH (27-31) pg MCHC (32-36) g/dl RDW (11.5-14.0) % Immature Gran % (Auto) (0.001-0.429) % Immature Gran # (Auto) (0.000-0.0310) K/mm3 Lymphocytes % (20-51) % Monocytes % (0.0-9) % Neutrophils # (1.3-6.0) K/mm3 Lymphocytes # (1.5-3.5) k/mm3 Monocytes # (0.0-1.0) k/mm3 Carbon Dioxide (24-32.6) mmol/L Random Glucose (70-110) mg/dL Iron 9 L (35-120) mcg/dL Transferrin % Sat 2 L (15-55) % ALT (19-67) U/L Albumin (3.4-5.0) gm/dl Ur Leukocyte Esterase (NEGATIVE) /ul Urine Bacteria (NONE) Urine Yeast (NONE) Stool Occult Blood Positive H Crossmatch See Detail Laboratory Results WBC 9.7 K/mm3 (4.0-10.5) 02/03/20 22:00 RBC 1.88 M/mm3 (4.2-5.4) L 02/03/20 22:00 Hgb 4.1 gm/dL (12.5-16.0) L* D 02/03/20 22:00 Hct 15.4 % (37.0-47.0) L* D 02/03/20 22:00 MCV 81.9 fl (78-100) 02/03/20 22:00 MCH 21.8 pg (27-31) L 02/03/20 22:00 MCHC 26.6 g/dl (32-36) L 02/03/20 22:00 RDW 16.1 % (11.5-14.0) H 02/03/20 22:00 Plt Count 347 K/mm3 (150-450) 02/03/20 22:00 MPV 12.0 fl (8-12.5) 02/03/20 22:00 Immature Gran % (Auto) 0.70 % (0.001-0.429) H 02/03/20 22:00 Immature Gran # (Auto) 0.07 K/mm3 (0.000-0.0310) H 02/03/20 22:00 Neutrophils % 68.4 % (42-75.0) 02/03/20 22:00 Lymphocytes % 14.4 % (20-51) L 02/03/20 22:00 Monocytes % 14.5 % (0.0-9) H 02/03/20 22:00 Eosinophils % 1.8 % (0.0-3.0) 02/03/20 22:00 Basophils % 0.2 % (0.0-1.0) 02/03/20 22:00 Nucleated RBC % 0.0 k/mm3 (0-1) 02/03/20 22:00 Neutrophils # 6.6 K/mm3 (1.3-6.0) H 02/03/20 22:00 Lymphocytes # 1.40 k/mm3 (1.5-3.5) L 02/03/20 22:00 Monocytes # 1.4 k/mm3 (0.0-1.0) H 02/03/20 22:00 Eosinophils # 0.2 k/mm3 (0.0-0.7) 02/03/20 22:00 Absolute Basophils 0.0 k/mm3 (0.0-0.1) 02/03/20 22:00 Sodium 138 mmol/L (132-142) 02/03/20 22:00 Plasma Sodium 139 mmol/L (130-142) 02/03/20 22:00 Potassium 3.8 mmol/L (3.4-4.6) 02/03/20 22:00 Chloride 106 mmol/L (97-106) 02/03/20 22:00 Carbon Dioxide 23.4 mmol/L (24-32.6) L 02/03/20 22:00 Anion Gap 12.4 mmol/L (6.8-13.8) 02/03/20 22:00 BUN 17 mg/dL (3-23) D 02/03/20 22:00 Creatinine 0.80 mg/dL (0.4-1.4) 02/03/20 22:00 Est GFR (Non-Af Amer) 72 mL/min (60-130) D 02/03/20 22:00 BUN/Creatinine Ratio 21.3 (9.0-21.6) 02/03/20 22:00 Random Glucose 145 mg/dL (70-110) H 02/03/20 22:00 Calcium 8.2 mg/dL (7.9-10.9) 02/03/20 22:00 Calcium Adj for Albumin 8.9 mg/dL (8.4-10.2) 02/03/20 22:00 Iron 9 mcg/dL (35-120) L 02/03/20 22:00 TIBC 420 mcg/dL (260-445) 02/03/20 22:00 Transferrin % Sat 2 % (15-55) L 02/03/20 22:00 Ferritin 15 ng/mL (8-252) 02/03/20 22:00 Total Bilirubin 0.1 mg/dL (0.0-1.1) 02/03/20 22:00 AST 15 U/L (0-48) 02/03/20 22:00 ALT 8 U/L (19-67) L 02/03/20 22:00 Alkaline Phosphatase 93 U/L (50-170) 02/03/20 22:00 Troponin I Less than 0.017 ng/mL (0.00-0.10) 02/03/20 22:00 Total Protein 6.4 gm/dL (6.2-8.2) 02/03/20 22:00 Albumin 2.7 gm/dl (3.4-5.0) L 02/03/20 22:00 Urine Color Yellow 02/03/20 22:00 Urine Appearance Slightly cloudy (CLEAR) 02/03/20 22:00 Urine pH 7.0 pH (5.0-7.0) 02/03/20 22:00 Ur Specific [place] 1.015 SP.GR. (1.005-1.010) 02/03/20 22:00 Urine Protein Negative mg/dL (NEGATIVE) 02/03/20 22:00 Urine Glucose (UA) Negative mg/dL (NEGATIVE) 02/03/20 22:00 Urine Ketones Negative mg/dL (NEGATIVE) 02/03/20 22:00 Urine Blood Negative /ul (NEGATIVE) 02/03/20 22:00 Urine Nitrate Negative (NEGATIVE) 02/03/20 22:00 Urine Bilirubin Negative mg/dl (NEGATIVE) 02/03/20 22:00 Urine Urobilinogen Normal EU/dl (NORMAL) 02/03/20 22:00 Ur Leukocyte Esterase 75 /ul (NEGATIVE) H 02/03/20 22:00 Urine RBC None seen /hpf (0-5) 02/03/20 22:00 Urine WBC 0-5 /hpf (0-5) 02/03/20 22:00 Ur Epithelial Cells 0-5 /hpf (0-5) 02/03/20 22:00 Urine Bacteria 1+ (NONE) H 02/03/20 22:00 Urine Yeast Moderate - 2+ (NONE) H 02/03/20 22:00 Urine Culture Comments Culture to follow 02/03/20 22:00 Stool Occult Blood Positive H 02/03/20 22:13 Blood Type A Positive 02/03/20 22:20 Antibody Screen Positive 02/03/20 22:20 Crossmatch See Detail 02/03/20 22:20 Assessment/Plan - Narrative Narrative: Patient was evaluated and medical chart was reviewed and decision to admit for treatment of severe anemia, generalized weakness, and suspected GI bleeding was made. Clinically the patient looks critically ill I am very concerned about her. She is extremely pale and weak and not able to provide a clear history given her acute condition. Physical exam revealed a distended abdomen with significant right upper and lower abdominal tenderness with high-pitched bowel sounds. Ongoing GI bleeding cannot be ruled out, therefore abdominal CT with contrast has been ordered stat. In the meantime we have contacted the blood bank and they inform us that they have not been able to match her blood yet given the presence of antibodies. The patient's daughter was contacted and she provided as much information that she could on her mother's past medical history especially concerning the uterine cancer that was treated with radiation and other complications related to that. She was not very helpful with providing recent details that could explain her mother's symptoms since she does not live with her mother. We will keep the patient on telemetry monitoring and await the blood to start transfusing immediately. At the moment she complains of intense abdominal pain that is worse in her right flank so we are administering analgesics to address the pain. However until we are able to transfuse the patient her prognosis remains poor. - Assessment/Plan (1) Anemia Problem: Acute Qualifiers: Anemia type: iron deficiency Iron deficiency anemia type: chronic blood loss Qualified Code(s): D50.0 - Iron deficiency anemia secondary to blood loss (chronic) (2) GI bleed Problem: Acute Qualifiers: GI bleed type/associated pathology: melena Qualified Code(s): K92.1 - Melena (3) Peripheral neuropathy Problem: Chronic Qualifiers: (4) hx of hemorrhoid surgery Problem: Chronic (5) Neurogenic bowel Problem: Chronic (6) IBS (irritable bowel syndrome) Problem: Chronic (7) Generalized weakness Problem: Acute
[2020-02-04] MEDS: NITROFURANTOIN/NITROFURAN MAC 100 MG CAPSULE PO SCH ×2 (11:03→22:14)
[2020-02-04] MEDS ORDERED: NORMAL SALINE 1,000 ML IV ONE (11:03)
[2020-02-04] MEDS ORDERED: FUROSEMIDE 10 MG/ML VIAL ONE (19:28)
[2020-02-04] MEDS ORDERED: GABAPENTIN 400 MG CAPSULE PO SCH (21:00)
[2020-02-04] MEDS: SENNOSIDES 8.6 MG TABLET PO SCH (22:15)
[2020-02-05 00:08] LABS: Hematocrit 26.7 % (37.0-47.0); Hemoglobin 8.2 gm/dL (12.5-16.0)
[2020-02-05] MEDS: ONDANSETRON HCL/PF 2 MG/ML VIAL IV PRN (01:58)
[2020-02-05] MEDS: GABAPENTIN 400 MG CAPSULE PO SCH ×5 (09:15→21:53)
[2020-02-05] MEDS: MULTIVITAMINS 1 CAP CAPSULE PO SCH (09:16)
[2020-02-05] MEDS: LACTOBACILLUS ACIDOPHILUS 1 EACH CAPSULE PO SCH (09:16)
[2020-02-05] MEDS: NITROFURANTOIN/NITROFURAN MAC 100 MG CAPSULE PO SCH ×2 (09:16→21:16)
--- NOTE | 2020-02-05 09:35 | PN ---
Subjective - Date and Time Seen Date: 02/05/20 Time: 08:46 Subjective Narrative: She complains of feeling weak and tired. She denies chest pain abdominal pain or shortness of breath. She complains of mild right flank pain. Denies nausea or vomiting. Denies any bowel movement since admission. Objective - Review of Systems Generalized/Overall Review: Reports: Weakness, Malaise, Fatigue. Denies: Ch ills, Fever Respiratory: Denies: Shortness of Breath Cardiac: Denies: Chest Pain Abdominal: Denies: Nausea, Vomiting, Abdominal Pain Misc: All systems neg except as marked - Vitals Vitals: Last Vital Signs Temp 36.3 C 02/05/20 06:56 Pulse 93 02/05/20 07:49 Resp 17 02/05/20 06:56 BP 142/78 02/05/20 06:56 Pulse Ox 97 02/05/20 06:56 - Abnormal Lab Findings Abnormal Lab Findings: Abnormal Lab Results 02/03/20 02/04/20 Range/Units 22:20 23:55 Hgb 8.2 L (12.5-16.0) gm/dL Hct 26.7 L (37.0-47.0) % Crossmatch See Detail - Exam Constitutional: Present: Alert, Cooperative, Well developed, Well nourished, No distress, Elderly ENT Exam: Present: hearing grossly normal Neck: Present: non-tender. Absent: lymphadenopathy (R), lymphadenopathy (L) Respiratory: Present: lungs clear, no respiratory distress, no accessory muscle use. 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 She was found to have severe anemia with hemoglobin of 4.1 with guaiac positive stool. She received 2 units of IV of packed red blood cells. Her hemoglobin came up to 8.2. She has not had any bowel movement since admission. Today she continues to feel weak but she is tolerating her diet. CT abdomen pelvis performed on February 04, 2020 was positive for potential decubitus ulcer with underlying osteomyelitis. Patient has visible no ulcer, pain, fever or leukocytosis. I spoke with the radiologist on service this morning, Dr. Combs who reviewed the CT abdomen pelvis again for me. He stated that if there is no clinical signs of ulcer then the findings on CT scan may be secondary to artifact and normal variant. Patient declines to have any further work-up such as endoscopy or colonoscopy. He has not had any bowel movement since admission and her hemoglobin and hematocrit are stable. I do not believe she is actively bleeding. She has been treated for UTI for the past several weeks with 2-3 courses of antibiotics. She is currently completing a course of nitrofurantoin. I will hold off on starting any new antibiotics. She is also following with urology as an outpatient. Plan #1 obtain CBC in CMP now #2 continue with home medications #3 wean off of oxygen #4 repeat CBC and CMP in the morning - Problems/Diagnosis (1) Symptomatic anemia Problem: Acute (2) GI bleed Problem: Acute Qualifiers: GI bleed type/associated pathology: melena Qualified Code(s): K92.1 - Melena (3) Chronic indwelling Saini catheter Problem: Chronic (4) Generalized weakness Problem: Acute (5) Transverse myelitis Problem: Chronic (6) Hyperlipidemia Problem: Chronic Qualifiers: Hyperlipidemia type: unspecified Qualified Code(s): E78.5 - Hyperlipidemia, unspecified (7) Urinary tract infection Problem: Chronic Qualifiers: Urinary tract infection type: site unspecified Hematuria presence: with hematuria Qualified Code(s): N39.0 - Urinary tract infection, site not specified; R31.9 - Hematuria, unspecified; R31.9 - Hematuria, unspecified
[2020-02-05] MEDS: PANTOPRAZOLE SODIUM 40 MG in NORMAL SALINE 100 ML IV SCH ×3 (09:51→22:54)
[2020-02-05 10:35] LABS: Hematocrit 27.7 % (37.0-47.0); Hemoglobin 8.5 gm/dL (12.5-16.0); Mean Cell Volume 85.8 fl (78-100); Mean Corpuscular Hemoglobin 26.3 pg (27-31); Mean Corpuscular Hgb Conc 30.7 g/dl (32-36); Mean Platelet Volume 12.9 fl (8-12.5); NRBC# 0.1 k/mm3 (0-1); Neutrophil # 7.7 K/mm3 (1.3-6.0); Neutrophil % 83.7 % (42-75.0); Platelet Count 273 K/mm3 (150-450); Red Blood Count 3.23 M/mm3 (4.2-5.4); Red Cell Distribution Width 16.2 % (11.5-14.0); White Blood Count 9.2 K/mm3 (4.0-10.5)
[2020-02-05 10:49] LABS: Albumin * 2.7 gm/dl (3.4-5.0); Anion Gap 11.1 mmol/L (6.8-13.8); BUN/Creatinine Ratio 26.5 (9.0-21.6); Bilirubin, Total 0.4 mg/dL (0.0-1.1); Ca. Corrected For Albumin 8.6 mg/dL (8.4-10.2); Calcium * 7.9 mg/dL (7.9-10.9); Carbon Dioxide 24.6 mmol/L (24-32.6); Potassium 3.7 mmol/L (3.4-4.6); Total Protein 6.3 gm/dL (6.2-8.2)
[2020-02-05] MEDS: SENNOSIDES 8.6 MG TABLET PO SCH (21:16)
[2020-02-06 06:35] LABS: Hematocrit 28.3 % (37.0-47.0); Hemoglobin 8.5 gm/dL (12.5-16.0); Mean Cell Volume 86.8 fl (78-100); Mean Corpuscular Hemoglobin 26.1 pg (27-31); Mean Platelet Volume 12.7 fl (8-12.5); Platelet Count 264 K/mm3 (150-450); Red Blood Count 3.26 M/mm3 (4.2-5.4); Red Cell Distribution Width 16.8 % (11.5-14.0); White Blood Count 12.5 K/mm3 (4.0-10.5)
[2020-02-06 06:36] LABS: Total Cells Counted 100
[2020-02-06 06:43] LABS: Eosinophil 2 % (0-3); Lymphocyte 15 % (20-51); Monocyte 13 % (0-9); Neutrophil 70 % (42-75); Neutrophil # 8.8 K/mm3 (1.3-6.0); Platelet Estimate Normal (NORMAL); RBC Morphology Normal (NORMAL)
[2020-02-06 06:46] LABS: Albumin * 2.6 gm/dl (3.4-5.0); Anion Gap 11.2 mmol/L (6.8-13.8); Bilirubin, Total 0.3 mg/dL (0.0-1.1); Ca. Corrected For Albumin 8.7 mg/dL (8.4-10.2); Calcium * 7.9 mg/dL (7.9-10.9); Carbon Dioxide 26.4 mmol/L (24-32.6); Potassium 3.6 mmol/L (3.4-4.6); Total Protein 6.1 gm/dL (6.2-8.2)
[2020-02-06] MEDS: DENTAL ADHESIVE 39 APPL TUBE TP SCH (07:59)
[2020-02-06] MEDS: NITROFURANTOIN/NITROFURAN MAC 100 MG CAPSULE PO SCH (08:00)
[2020-02-06] MEDS: LACTOBACILLUS ACIDOPHILUS 1 EACH CAPSULE PO SCH (08:00)
[2020-02-06] MEDS: MULTIVITAMINS 1 CAP CAPSULE PO SCH (08:00)
[2020-02-06] MEDS: GABAPENTIN 400 MG CAPSULE PO SCH ×5 (08:00→22:06)
--- NOTE | 2020-02-06 09:29 | DS ---
(1) Symptomatic anemia Problem: Acute (2) GI bleed Problem: Acute Qualifiers: GI bleed type/associated pathology: melena Qualified Code(s): K92.1 - Melena (3) Chronic indwelling Saini catheter Problem: Chronic (4) Generalized weakness Problem: Acute (5) Transverse myelitis Problem: Chronic (6) Hyperlipidemia Problem: Chronic Qualifiers: Hyperlipidemia type: unspecified Qualified Code(s): E78.5 - Hyperlipidemia, unspecified (7) Urinary tract infection Problem: Chronic Qualifiers: Urinary tract infection type: site unspecified Hematuria presence: with hematuria Qualified Code(s): N39.0 - Urinary tract infection, site not specified; R31.9 - Hematuria, unspecified; R31.9 - Hematuria, unspecified Hospital Course: 89-year-old female with a past medical history of 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 She was found to have severe anemia with hemoglobin of 4.1 with guaiac positive stool. She received 2 units of IV of packed red blood cells. Her hemoglobin came up to 8.2. She has not had any bowel movement since admission. Today she continues to feel weak but she is tolerating her diet. CT abdomen pelvis performed on February 04, 2020 was positive for potential decubitus ulcer with underlying osteomyelitis. Patient has visible no ulcer, pain, fever or leukocytosis. I spoke with the radiologist on service this morning, Dr. Combs who reviewed the CT abdomen pelvis again for me. He stated that if there is no clinical signs of ulcer then the findings on CT scan may be secondary to artifact and normal variant. Patient declines to have any further work-up such as endoscopy or colonoscopy. He has not had any bowel movement since admission and her hemoglobin and hematocrit are stable at 8.5/28.3. I do not believe she is actively bleeding. She has been treated for UTI for the past several weeks with 2-3 courses of antibiotics. She is currently completing a course of nitrofurantoin. I will hold off on starting any new antibiotics. She is also following with urology as an outpatient. Prior to discharge she developed a mild leukocytosis with white count of 12.5, vitals are stable, no shortness of breath, or pain. Xanthomonas Maltophilia 40,000-50,000 CFU's. It is sensitive to Bactrim but she has no abdominal discomfort, fever or changes in mentation. I do not feel this needs to be treated at this time especially since she has had 3 rounds of antibiotics over the past 1 month for UTI symptoms. I do not want to create resistant organisms. She has also been seen by urology and they also stated in their most recent note to defer unnecessary treatment because her urine always grow something. I will monitor her white blood cell count and hemoglobin with a CBC. I will order a CBC prior to her follow-up appointment with me within the next 1 week. Procedures Performed: none Results and Findings: Lab Pending Results 02/03/20 22:00: WBC 9.7, RBC 1.88 L, Hgb 4.1 L* D, Hct 15.4 L* D, MCV 81.9, MCH 21.8 L, MCHC 26.6 L, RDW 16.1 H, Plt Count 347, MPV 12.0, Immature Gran % (Auto) 0.70 H, Immature Gran # (Auto) 0.07 H, Neutrophils % 68.4, Lymphocytes % 14.4 L, Monocytes % 14.5 H, Eosinophils % 1.8, Basophils % 0.2, Nucleated RBC % 0.0, Neutrophils # 6.6 H, Lymphocytes # 1.40 L, Monocytes # 1.4 H, Eosinophils # 0.2, Absolute Basophils 0.0 02/03/20 22:00: Sodium 138, Plasma Sodium 139, Potassium 3.8, Chloride 106, Carbon Dioxide 23.4 L, Anion Gap 12.4, BUN 17 D, Creatinine 0.80, Est GFR (Non-Af Amer) 72 D, BUN/Creatinine Ratio 21.3, Random Glucose 145 H, Calcium 8.2, Calcium Adj for Albumin 8.9, Total Bilirubin 0.1, AST 15, ALT 8 L, Alkaline Phosphatase 93, Troponin I Less than 0.017, Total Protein 6.4, Albumin 2.7 L 02/03/20 22:00: Urine Color Yellow, Urine Appearance Slightly cloudy, Urine pH 7.0, Ur Specific [place]es 1.015, Urine Protein Negative, Urine Glucose (UA) Negative, Urine Ketones Negative, Urine Blood Negative, Urine Nitrate Negative, Urine Bilirubin Negative, Urine Urobilinogen Normal, Ur Leukocyte Esterase 75 H, Urine RBC None seen, Urine WBC 0-5, Ur Epithelial Cells 0-5, Urine Bacteria 1+ H, Urine Yeast Moderate - 2+ H, Urine Culture Comments Culture to follow 02/03/20 22:00: Iron 9 L, TIBC 420, Transferrin % Sat 2 L 02/03/20 22:00: Ferritin 15 02/03/20 22:13: Stool Occult Blood Positive H 02/03/20 22:20: Blood Type A Positive, Antibody Screen Positive, Antibody Identification Anti-I, Crossmatch See Detail 02/04/20 23:55: Hgb 8.2 L, Hct 26.7 L 02/05/20 10:29: WBC 9.2, RBC 3.23 L, Hgb 8.5 L, Hct 27.7 L, MCV 85.8, MCH 26.3 L, MCHC 30.7 L, RDW 16.2 H, Plt Count 273, MPV 12.9 H, Immature Gran % (Auto) 1.30 H, Immature Gran # (Auto) 0.12 H, Neutrophils % 83.7 H, Lymphocytes % 6.5 L, Monocytes % 8.1, Eosinophils % 0.0, Basophils % 0.4, Nucleated RBC % 0.1, Neutrophils # 7.7 H, Lymphocytes # 0.60 L, Monocytes # 0.7, Eosinophils # 0.0, Absolute Basophils 0.0 02/05/20 10:29: Sodium 138, Plasma Sodium 139, Potassium 3.7, Chloride 106, Carbon Dioxide 24.6, Anion Gap 11.1, BUN 18, Creatinine 0.68, Est GFR (Non-Af Amer) 87 D, BUN/Creatinine Ratio 26.5 H, Random Glucose 147 H, Calcium 7.9, Calcium Adj for Albumin 8.6, Total Bilirubin 0.4, AST 29, ALT 25, Alkaline Phosphatase 106, Total Protein 6.3, Albumin 2.7 L 02/06/20 06:05: WBC 12.5 H D, RBC 3.26 L, Hgb 8.5 L, Hct 28.3 L, MCV 86.8, MCH 26.1 L, MCHC 30.0 L, RDW 16.8 H, Plt Count 264, MPV 12.7 H, Neutrophils % (Manual) 70, Lymphocytes % (Manual) 15 L, Monocytes % (Manual) 13 H, Eosinophils % (Manual) 2, Neutrophils # (Manual) 8.8 H, Lymphocytes # (Manual) 1.9, Monocytes # (Manual) 1.6 H, Eosinophils # (Manual) 0.3, Platelet Estimate Normal, RBC Morphology Normal 02/06/20 06:05: Sodium 138, Plasma Sodium 138, Potassium 3.6, Chloride 104, Carbon Dioxide 26.4, Anion Gap 11.2, BUN 23, Creatinine 0.92, Est GFR (Non-Af Amer) 61 D, BUN/Creatinine Ratio 25.0 H, Random Glucose 118 H, Calcium 7.9, Calcium Adj for Albumin 8.7, Total Bilirubin 0.3, AST 21, ALT 21, Alkaline Phosphatase 106, Total Protein 6.1 L, Albumin 2.6 L Discharge Location: [facility] Disposition: [facility] Agency: [facility] Home Health Condition: Fair Discharge Activity: Non-Weight bearing Discharge Diet: General/regular food Referrals: Dayana Martell MD [Primary Care Provider] - Additional Patient Instructions (free text): Please fax discharge information to [facility] and to [facility]. She will need to follow-up with me within 1 week of discharge and obtain a CBC prior to her appointment. She will also need an outpatient sleep study because her oxygen level dropped into the high 80s at night while hospitalized she responded well to oxygen via nasal cannula.. Complete Home Medications List: Complete Home Medication List: Aspirin [Aspirin EC] 81 mg PO DAILY 01/22/18 cranberry 400 mg capsule 400 mg PO DAILY 05/30/18 lactobacillus combination no.8 3 billion cell capsule 3,000 mmu cells PO DAILY 09/21/19 multivitamin 1 tab PO DAILY 09/21/19 gabapentin 400 mg capsule 400 mg PO HS #1 cap 01/05/20 gabapentin 800 mg tablet 800 mg PO QID #1 tab 01/05/20 sennosides 8.6 mg tablet 4.3 mg PO HS tab 01/25/20 Nitrofurantoin Macrocrystal [Nitrofurantoin] 100 mg PO BID 02/04/20 Amb Orders for Discharge: CBC Time Frame: 1 Week, Facility: [facility], Location: Laboratory Forms: Patient Portal Registration
[2020-02-06] MEDS: PANTOPRAZOLE SODIUM 40 MG in NORMAL SALINE 100 ML IV SCH ×2 (10:30→21:30)
--- NOTE | 2020-02-06 11:48 | PN ---
Subjective - Date and Time Seen Date: 02/06/20 Time: 08:56 Subjective Narrative: Feels well and would like to go home. Objective - Review of Systems Generalized/Overall Review: Reports: Fever Respiratory: Denies: Cough, Shortness of Breath Cardiac: Denies: Chest Pain Abdominal: Denies: Abdominal Pain Misc: All systems neg except as marked - Vitals Vitals: Last Vital Signs Temp 38.2 C H 02/06/20 11:18 Pulse 104 H 02/06/20 11:08 Resp 16 02/06/20 11:08 BP 135/73 02/06/20 11:08 Pulse Ox 91 L 02/06/20 11:10 - Abnormal Lab Findings Abnormal Lab Findings: Abnormal Lab Results 02/06/20 02/06/20 Range/Units 06:05 06:05 WBC 12.5 H D (4.0-10.5) K/mm3 RBC 3.26 L (4.2-5.4) M/mm3 Hgb 8.5 L (12.5-16.0) gm/dL Hct 28.3 L (37.0-47.0) % MCH 26.1 L (27-31) pg MCHC 30.0 L (32-36) g/dl RDW 16.8 H (11.5-14.0) % MPV 12.7 H (8-12.5) fl Lymphocytes % (Manual) 15 L (20-51) % Monocytes % (Manual) 13 H (0-9) % Neutrophils # (Manual) 8.8 H (1.3-6.0) K/mm3 Monocytes # (Manual) 1.6 H (0.0-1.0) k/mm3 BUN/Creatinine Ratio 25.0 H (9.0-21.6) Random Glucose 118 H (70-110) mg/dL Total Protein 6.1 L (6.2-8.2) gm/dL Albumin 2.6 L (3.4-5.0) gm/dl - Exam Constitutional: Present: Alert, Cooperative, Well developed, Well nourished, No distress, Elderly ENT Exam: Present: hearing grossly normal Neck: Present: non-tender, supple. Absent: lymphadenopathy (R), lymphadenopathy (L) Respiratory: Present: lungs clear, no respiratory distress, no accessory muscle use, crackles - Mild in bilateral bases, No wheezing. 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 She was found to have severe anemia with hemoglobin of 4.1 with guaiac positive stool. She received 2 units of IV of packed red blood cells. Her hemoglobin came up to 8.2. She has not had any bowel movement since admission. Today she continues to feel weak but she is tolerating her diet. CT abdomen pelvis performed on February 04, 2020 was positive for potential decubitus ulcer with underlying osteomyelitis. Patient has visible no ulcer, pain, fever or leukocytosis. I spoke with the radiologist on service this morning, Dr. Combs who reviewed the CT abdomen pelvis again for me. He stated that if there is no clinical signs of ulcer then the findings on CT scan may be secondary to artifact and normal variant. Patient declines to have any further work-up such as endoscopy or colonoscopy. He has not had any bowel movement since admission and her hemoglobin and hematoc rit are stable. I do not believe she is actively bleeding. She has been treated for UTI for the past several weeks with 2-3 courses of antibiotics. She is currently completing a course of nitrofurantoin. I will hold off on starting any new antibiotics. She is also following with urology as an outpatient. She developed a low-grade fever 100.2, mild leukocytosis of 12.5 and hypoxia in the high 80s requiring 1 L of oxygen. I am holding discharge for today and will keep her for further monitoring. I will also start her on Levaquin. Plan #1 Start Levaquin 750 mg daily for 5 days #2 continue with home medications #3 wean off of oxygen #4 Repeat chest x-ray now #5 order stat EKG, troponin, ABG Chest x-ray shows some mild vascular congestion swelling the following days of oral Lasix 20 mg. - Problems/Diagnosis (1) Symptomatic anemia Problem: Acute (2) GI bleed Problem: Acute Qualifiers: GI bleed type/associated pathology: melena Qualified Code(s): K92.1 - Melena (3) Chronic indwelling Saini catheter Problem: Chronic (4) Generalized weakness Problem: Acute (5) Transverse myelitis Problem: Chronic (6) Hyperlipidemia Problem: Chronic Qualifiers: Hyperlipidemia type: unspecified Qualified Code(s): E78.5 - Hyperlipidemia, unspecified (7) Hypoxia Problem: Acute (8) Pneumonia Problem: Suspected (9) Urinary tract infection associated with indwelling urethral catheter Problem: Acute Qualifiers: Encounter type: initial encounter Qualified Code(s): T83.511A - Infection and inflammatory reaction due to indwelling urethral catheter, initial encounter; N39.0 - Urinary tract infection, site not specified
[2020-02-06] MEDS: LEVOFLOXACIN 750 MG TABLET PO SCH (12:24)
[2020-02-06] MEDS ORDERED: FUROSEMIDE 20 MG TABLET PO ONE (15:19)
[2020-02-06] MEDS: DOCUSATE SODIUM 100 MG CAPSULE PO SCH ×2 (16:56→21:23)
[2020-02-06] MEDS ORDERED: FUROSEMIDE 20 MG TABLET ONE (16:59)
[2020-02-06] MEDS: ACETAMINOPHEN 500 MG TABLET PO PRN (21:18)
[2020-02-06] MEDS: SENNOSIDES 8.6 MG TABLET PO SCH (21:19)
[2020-02-07 06:59] LABS: Albumin * 2.3 gm/dl (3.4-5.0); Anion Gap 8.7 mmol/L (6.8-13.8); BUN/Creatinine Ratio 18.8 (9.0-21.6); Bilirubin, Total 0.2 mg/dL (0.0-1.1); Ca. Corrected For Albumin 9.1 mg/dL (8.4-10.2); Calcium * 8.1 mg/dL (7.9-10.9); Carbon Dioxide 29.4 mmol/L (24-32.6); Potassium 3.1 mmol/L (3.4-4.6)
[2020-02-07 07:04] LABS: Hematocrit 28.2 % (37.0-47.0); Hemoglobin 8.4 gm/dL (12.5-16.0); Mean Cell Volume 87.6 fl (78-100); Mean Corpuscular Hemoglobin 26.1 pg (27-31); Mean Corpuscular Hgb Conc 29.8 g/dl (32-36); Mean Platelet Volume 12.5 fl (8-12.5); Platelet Count 213 K/mm3 (150-450); Red Blood Count 3.22 M/mm3 (4.2-5.4); Red Cell Distribution Width 17.3 % (11.5-14.0)
[2020-02-07 07:11] LABS: Total Cells Counted 100
[2020-02-07 07:15] LABS: Eosinophil 2 % (0-3); Lymphocyte 4 % (20-51); Monocyte 10 % (0-9); Neutrophil 84 % (42-75); Neutrophil # 12.6 K/mm3 (1.3-6.0); Platelet Estimate Normal (NORMAL)
[2020-02-07 07:16] LABS: RBC Morphology Normal (NORMAL)
[2020-02-07] MEDS: LACTOBACILLUS ACIDOPHILUS 1 EACH CAPSULE PO SCH (09:00)
[2020-02-07] MEDS: DOCUSATE SODIUM 100 MG CAPSULE PO SCH ×2 (09:01→21:34)
[2020-02-07] MEDS: MULTIVITAMINS 1 CAP CAPSULE PO SCH (09:01)
[2020-02-07] MEDS: GABAPENTIN 400 MG CAPSULE PO SCH ×5 (09:01→21:37)
[2020-02-07] MEDS ORDERED: POTASSIUM BICARBONATE/CIT AC 25 MEQ TABLET.EFF PO ONE (09:03)
[2020-02-07] MEDS: DENTAL ADHESIVE 39 APPL TUBE TP SCH (09:05)
[2020-02-07] MEDS: BISACODYL 5 MG TABLET.DR PO SCH (09:37)
--- NOTE | 2020-02-07 10:50 | PN ---
Subjective - Date and Time Seen Date: 02/07/20 Time: 09:05 Subjective Narrative: She feels weak, has shortness of breath. She denies cough. She notes chest discomfort but no pain. She denies abdominal pain. She did have a small bowel movement this morning. She had breakfast and tolerated it well. Denies fevers. Objective - Review of Systems Generalized/Overall Review: Reports: Weakness. Denies: Fever Respiratory: Reports: Shortness of Breath. Denies: Cough Cardiac: Denies: Chest Pain Abdominal: Reports: Constipation. Denies: Abdominal Pain Misc: All systems neg except as marked - Vitals Vitals: Last Vital Signs Temp 36.1 C 02/07/20 06:45 Pulse 87 02/07/20 06:45 Resp 18 02/07/20 06:45 BP 147/73 02/07/20 06:45 Pulse Ox 96 02/07/20 06:45 - Abnormal Lab Findings Abnormal Lab Findings: Abnormal Lab Results 02/03/20 02/06/20 02/07/20 Range/Units 22:20 13:47 06:30 WBC 15.0 H (4.0-10.5) K/mm3 RBC 3.22 L (4.2-5.4) M/mm3 Hgb 8.4 L (12.5-16.0) gm/dL Hct 28.2 L (37.0-47.0) % MCH 26.1 L (27-31) pg MCHC 29.8 L (32-36) g/dl RDW 17.3 H (11.5-14.0) % Neutrophils % (Manual) 84 H (42-75) % Lymphocytes % (Manual) 4 L (20-51) % Monocytes % (Manual) 10 H (0-9) % Neutrophils # (Manual) 12.6 H (1.3-6.0) K/mm3 Lymphocytes # (Manual) 0.6 L (1.5-3.5) k/mm3 Monocytes # (Manual) 1.5 H (0.0-1.0) k/mm3 pCO2 27.7 L (32.0-45.0) mmHg pO2 62.2 L (83.0-108.0) mmHg HCO3 17.4 L (21.0-28.0) mmol/L Total CO2 18.3 L (19.0-24.0) mmol/L Base Excess -6.2 L (-2.0-3.0) mmol/L ABG O2 Sat (Measured) 92.6 L (94.0-98.0) % Potassium (3.4-4.6) mmol/L Random Glucose (70-110) mg/dL ALT (19-67) U/L Total Protein (6.2-8.2) gm/dL Albumin (3.4-5.0) gm/dl Crossmatch See Detail 02/07/20 Range/Units 06:30 WBC (4.0-10.5) K/mm3 RBC (4.2-5.4) M/mm3 Hgb (12.5-16.0) gm/dL Hct (37.0-47.0) % MCH (27-31) pg MCHC (32-36) g/dl RDW (11.5-14.0) % Neutrophils % (Manual) (42-75) % Lymphocytes % (Manual) (20-51) % Monocytes % (Manual) (0-9) % Neutrophils # (Manual) (1.3-6.0) K/mm3 Lymphocytes # (Manual) (1.5-3.5) k/mm3 Monocytes # (Manual) (0.0-1.0) k/mm3 pCO2 (32.0-45.0) mmHg pO2 (83.0-108.0) mmHg HCO3 (21.0-28.0) mmol/L Total CO2 (19.0-24.0) mmol/L Base Excess (-2.0-3.0) mmol/L ABG O2 Sat (Measured) (94.0-98.0) % Potassium 3.1 L (3.4-4.6) mmol/L Random Glucose 126 H (70-110) mg/dL ALT 15 L (19-67) U/L Total Protein 6.0 L (6.2-8.2) gm/dL Albumin 2.3 L (3.4-5.0) gm/dl Crossmatch - Exam Constitutional: Present: Alert, Cooperative, Well developed, Well nourished, No distress, Elderly ENT Exam: Present: hearing grossly normal Neck: Absent: lymphadenopathy (R), lymphadenopathy (L) Respiratory: Present: lungs clear, no respiratory distress, no accessory muscle use, No wheezing. Absent: crackles, rhonchi Cardiovascular/Chest: Present: normal peripheral pulses, regular rate, rhythm, no murmur Abdomen: Present: Normal bowel sounds, soft, nontender Extremity: Present: no pedal edema Skin Exam: Present: normal color, warm/dry Neurologic: Present: alert, normal mood/affect Appearance: Present: appropriate appearance, appropriate insight Eye contact: Present: cooperative Thoughts: Present: normal thought pattern, normal mood /affect - Yellow and will do a Mini-Mental Assessment/Plan Plan Narrative: 89-year-old female with a past medical history of transverse myelitis in her thoracic spine (diagnosed in 1999), she is paraplegic, endocervical neoplasm, hyperlipidemia, mitral valve prolapse, neurogenic bowel, neuromyelitis optica, osteoporosis, neurogenic bladder with chronic Asini in place presents assisted living with complaints of right-sided abdominal pain, dizziness and weakness. She was found to have severe anemia with hemoglobin of 4.1 with guaiac positive stool. She received 2 units of IV of packed red blood cells. Her hemoglobin came up to 8.2. She has not had any bowel movement since admission. Today she continues to feel weak but she is tolerating her diet. CT abdomen pelvis performed on February 04, 2020 was positive for potential decubitus ulcer with underlying osteomyelitis. Patient has visible no ulcer, pain, fever or leukocytosis. I spoke with the radiologist on service this morning, Dr. Combs who reviewed the CT abdomen pelvis again for me. He stated that if there is no clinical signs of ulcer then the findings on CT scan may be secondary to artifact and normal variant. Patient declines to have any further work-up such as endoscopy or colonoscopy. He has not had any bowel movement since admission and her hemoglobin and hematocrit are stable. I do not believe she is actively bleeding. She has been treated for UTI for the past several weeks with 2-3 courses of antibiotics. She is currently completing a course of nitrofurantoin. I will hold off on starting any new antibiotics. She is also following with urology as an outpatient. Chest x-ray shows some mild vascular congestion swelling, likely left basilar pneumonia. She continues to have weakness but has no fevers. She continues to require oxygen supplementation. She had one small bowel movement today. She complains of difficulty sleeping due to pain frequently disturbed by the staff and the no ise. Potassium dropped to 3.1 today likely secondary to the Lasix given yesterday. WBCs went up from 12.5-15 Plan #1 Continue Levaquin 750 mg daily day 09/27 #2 continue with home medications #3 wean off of oxygen #4 Continue with bowel regimen add Dulcolax #5 order physical therapy #6 add melatonin #7 replete potassium - Problems/Diagnosis (1) Symptomatic anemia Problem: Acute (2) GI bleed Problem: Acute Qualifiers: GI bleed type/associated pathology: melena Qualified Code(s): K92.1 - Melena (3) Chronic indwelling Saini catheter Problem: Chronic (4) Generalized weakness Problem: Acute (5) Transverse myelitis Problem: Chronic (6) Hyperlipidemia Problem: Chronic Qualifiers: Hyperlipidemia type: unspecified Qualified Code(s): E78.5 - Hyperlipidemia, unspecified (7) Hypoxia Problem: Acute (8) Pneumonia Problem: Suspected Qualifiers: Laterality: left Lung location: lower lobe of lung
[2020-02-07] MEDS: LEVOFLOXACIN 750 MG TABLET PO SCH (10:54)
[2020-02-07] MEDS: ACETAMINOPHEN 500 MG TABLET PO PRN ×2 (10:54→17:04)
[2020-02-07] MEDS: PANTOPRAZOLE SODIUM 40 MG in NORMAL SALINE 100 ML IV SCH ×2 (10:58→21:45)
[2020-02-07] MEDS ORDERED: LEVOFLOXACIN 750 MG TABLET PO SCH (11:00)
[2020-02-07] MEDS ORDERED: MELATONIN 3,000 MCG TABLET PO PRN (16:18)
[2020-02-07] MEDS ORDERED: CALCIUM POLYCARBOPHIL 625 MG TABLET PO PRN (16:19)
[2020-02-07] MEDS: SENNOSIDES 8.6 MG TABLET PO SCH (21:38)
[2020-02-08] MEDS: ACETAMINOPHEN 500 MG TABLET PO PRN ×2 (04:02→14:30)
[2020-02-08] MEDS: GABAPENTIN 400 MG CAPSULE PO SCH ×5 (05:42→20:03)
[2020-02-08 07:00] LABS: Albumin * 2.2 gm/dl (3.4-5.0); Anion Gap 8.2 mmol/L (6.8-13.8); BUN/Creatinine Ratio 17.1 (9.0-21.6); Bilirubin, Total 0.2 mg/dL (0.0-1.1); Ca. Corrected For Albumin 9.4 mg/dL (8.4-10.2); Calcium * 8.3 mg/dL (7.9-10.9); Carbon Dioxide 30.5 mmol/L (24-32.6); Potassium 3.7 mmol/L (3.4-4.6); Total Protein 6.1 gm/dL (6.2-8.2)
[2020-02-08] MEDS ORDERED: BISACODYL 10 MG SUPP.RECT RC ONE (07:27)
[2020-02-08 07:29] LABS: Hematocrit 29.3 % (37.0-47.0); Hemoglobin 8.8 gm/dL (12.5-16.0); Mean Cell Volume 87.5 fl (78-100); Mean Corpuscular Hemoglobin 26.3 pg (27-31); Mean Platelet Volume 13.1 fl (8-12.5); Platelet Count 223 K/mm3 (150-450); Red Blood Count 3.35 M/mm3 (4.2-5.4); Red Cell Distribution Width 17.8 % (11.5-14.0); White Blood Count 11.8 K/mm3 (4.0-10.5)
[2020-02-08 07:31] LABS: Total Cells Counted 100
[2020-02-08 07:45] LABS: Lymphocyte 11 % (20-51); Monocyte 13 % (0-9); Neutrophil 76 % (42-75); Platelet Estimate Normal (NORMAL); RBC Morphology Normal (NORMAL)
[2020-02-08] MEDS: LACTOBACILLUS ACIDOPHILUS 1 EACH CAPSULE PO SCH (08:32)
[2020-02-08] MEDS: MULTIVITAMINS 1 CAP CAPSULE PO SCH (08:33)
[2020-02-08] MEDS: DOCUSATE SODIUM 100 MG CAPSULE PO SCH ×2 (08:33→21:12)
[2020-02-08] MEDS: BISACODYL 5 MG TABLET.DR PO SCH ×2 (08:33→10:29)
[2020-02-08] MEDS: DENTAL ADHESIVE 39 APPL TUBE TP SCH (08:34)
[2020-02-08] MEDS ORDERED: SENNOSIDES 8.6 MG TABLET PO PRN (09:56)
--- NOTE | 2020-02-08 09:56 | PN ---
Subjective - Date and Time Seen Date: 02/08/20 Time: 09:51 Subjective Narrative: She states her shortness of breath is better but she continues to feel weak she had another small bowel movement today. Objective - Review of Systems Generalized/Overall Review: Reports: Weakness Respiratory: Reports: Shortness of Breath Cardiac: Denies: Chest Pain Abdominal: Denies: Abdominal Pain Misc: All systems neg except as marked - Vitals Vitals: Last Vital Signs Temp 36.4 C 02/08/20 06:45 Pulse 94 02/08/20 07:07 Resp 17 02/08/20 06:45 BP 153/40 H 02/08/20 06:45 Pulse Ox 98 02/08/20 07:44 - Abnormal Lab Findings Abnormal Lab Findings: Abnormal Lab Results 02/08/20 02/08/20 Range/Units 06:40 06:40 WBC 11.8 H D (4.0-10.5) K/mm3 RBC 3.35 L (4.2-5.4) M/mm3 Hgb 8.8 L (12.5-16.0) gm/dL Hct 29.3 L (37.0-47.0) % MCH 26.3 L (27-31) pg MCHC 30.0 L (32-36) g/dl RDW 17.8 H (11.5-14.0) % MPV 13.1 H (8-12.5) fl Neutrophils % (Manual) 76 H (42-75) % Lymphocytes % (Manual) 11 L (20-51) % Monocytes % (Manual) 13 H (0-9) % Neutrophils # (Manual) 9.0 H (1.3-6.0) K/mm3 Lymphocytes # (Manual) 1.3 L (1.5-3.5) k/mm3 Monocytes # (Manual) 1.5 H (0.0-1.0) k/mm3 Random Glucose 125 H (70-110) mg/dL ALT 14 L (19-67) U/L Total Protein 6.1 L (6.2-8.2) gm/dL Albumin 2.2 L (3.4-5.0) gm/dl - Exam Constitutional: Present: Alert, Cooperative, Well developed, Well nourished, No distress, Elderly ENT Exam: Present: hearing grossly normal Neck: Present: non-tender, supple. Absent: lymphadenopathy (R), lymphadenopathy (L) Respiratory: Present: lungs clear, no respiratory distress, no accessory muscle use, No wheezing. Absent: crackles, rhonchi Cardiovascular/Chest: Present: normal peripheral pulses, regular rate, rhythm, no edema, no murmur Abdomen: Present: Normal bowel sounds, soft, nontender Extremity: Present: no pedal edema Skin Exam: Present: normal color, warm/dry Neurologic: Present: alert, normal mood/affect Appearance: Present: appropriate insight Eye contact: Present: cooperative Thoughts: Present: normal mood /affect Assessment/Plan Plan Narrative: 89-year-old female with a past medical history of 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 She was found to have severe anemia with hemoglobin of 4.1 with guaiac positive stool. She received 2 units of IV of packed red blood cells. Her hemoglobin came up to 8.2. She has not had any bowel movement since admission. Today she continues to feel weak but she is tolerating her diet. CT abdomen pelvis performed on February 04, 2020 was positive for potential decubitus ulcer with underlying osteomyelitis. Patient has visible no ulcer, pain, fever or leukocytosis. I spoke with the radiologist on service this morning, Dr. Combs who reviewed the CT abdomen pelvis again for me. He stated that if there is no clinical signs of ulcer then the findings on CT scan may be secondary to artifact and normal variant. Patient declines to have any further work-up such as endoscopy or colonoscopy. He has not had any bowel movement since admission and her hemoglobin and hematocrit are stable. I do not believe she is actively bleeding. She has been treated for UTI for the past several weeks with 2-3 courses of antibiotics. She is currently completing a course of nitrofurantoin. I will hold off on starting any new antibiotics. She is also following with urology as an outpatient. Chest x-ray shows some mild vascular congestion swelling, likely left basilar pneumonia. She continues to have weakness but has no fevers. She continues to require oxygen supplementation but her shortness of breath has improved. She had another small bowel movement today. She complains of difficulty sleeping due to pain frequently disturbed by the staff and the noise. WBCs dropped from 15 to 11.8. Hemoglobin is stable at 8.8. Per physical therapy needs recommendations the patient will likely need alf placement due to her weakness and inability for her to help transfer her at the assisted living facility. Plan #1 Continue Levaquin 750 mg daily day 3/5 #2 continue with home medications #3 wean off of oxygen #4 Continue with bowel regimen add Fleet enema as needed #5 Continue physical therapy #6 add trazodone 50 mg nightly #7 replete potassium as needed - Problems/Diagnosis (1) Symptomatic anemia Problem: Acute (2) GI bleed Problem: Resolved Qualifiers: GI bleed type/associated pathology: melena Qualified Code(s): K92.1 - Melena (3) Chronic indwelling Saini catheter Problem: Chronic (4) Generalized weakness Problem: Acute (5) Transverse myelitis Problem: Chronic (6) Hyperlipidemia Problem: Chronic Qualifiers: Hyperlipidemia type: unspecified Qualified Code(s): E78.5 - Hyperlipidemia, unspecified (7) Hypoxia Problem: Acute (8) Pneumonia Problem: Acute Qualifiers: Laterality: left Lung location: lower lobe of lung
[2020-02-08] MEDS: PANTOPRAZOLE SODIUM 40 MG TABLET.EC PO SCH (10:26)
[2020-02-08] MEDS: LEVOFLOXACIN 750 MG TABLET PO SCH (10:27)
[2020-02-08] MEDS ORDERED: MINERAL OIL 1 ENEMA BTL RC PRN (15:28)
[2020-02-08] MEDS: ALBUTEROL SULFATE/IPRATROPIUM 3 ML NEBU IH PRN ×2 (15:29→19:22)
[2020-02-08] MEDS ORDERED: NORMAL SALINE 1,000 ML IV PRN (16:41)
[2020-02-08] MEDS ORDERED: traZODone HCL 50 MG TABLET PO SCH (21:00)
[2020-02-08] MEDS: SENNOSIDES 8.6 MG TABLET PO SCH (21:16)
[2020-02-09] MEDS: ACETAMINOPHEN 500 MG TABLET PO PRN ×2 (00:29→10:41)
[2020-02-09 07:06] LABS: Hemoglobin 8.3 gm/dL (12.5-16.0); Mean Cell Volume 86.2 fl (78-100); Mean Corpuscular Hemoglobin 25.5 pg (27-31); Mean Corpuscular Hgb Conc 29.6 g/dl (32-36); Mean Platelet Volume 12.6 fl (8-12.5); Neutrophil # 6.4 K/mm3 (1.3-6.0); Neutrophil % 64.9 % (42-75.0); Platelet Count 200 K/mm3 (150-450); Red Blood Count 3.25 M/mm3 (4.2-5.4); Red Cell Distribution Width 18.5 % (11.5-14.0); White Blood Count 9.9 K/mm3 (4.0-10.5)
[2020-02-09 07:23] LABS: Albumin * 2.1 gm/dl (3.4-5.0); Anion Gap 7.6 mmol/L (6.8-13.8); BUN/Creatinine Ratio 13.9 (9.0-21.6); Bilirubin, Total 0.1 mg/dL (0.0-1.1); Ca. Corrected For Albumin 9.3 mg/dL (8.4-10.2); Calcium * 8.1 mg/dL (7.9-10.9); Potassium 3.6 mmol/L (3.4-4.6); Total Protein 5.9 gm/dL (6.2-8.2)
[2020-02-09] MEDS: PANTOPRAZOLE SODIUM 40 MG TABLET.EC PO SCH (07:59)
[2020-02-09] MEDS: DOCUSATE SODIUM 100 MG CAPSULE PO SCH (07:59)
[2020-02-09] MEDS: LACTOBACILLUS ACIDOPHILUS 1 EACH CAPSULE PO SCH (07:59)
[2020-02-09] MEDS: GABAPENTIN 400 MG CAPSULE PO SCH ×2 (07:59→10:41)
[2020-02-09] MEDS: BISACODYL 5 MG TABLET.DR PO SCH (07:59)
[2020-02-09] MEDS: DENTAL ADHESIVE 39 APPL TUBE TP SCH (08:00)
[2020-02-09] MEDS: LEVOFLOXACIN 750 MG TABLET PO SCH ×2 (08:00→10:41)
[2020-02-09] MEDS: MULTIVITAMINS 1 CAP CAPSULE PO SCH (08:06)
--- NOTE | 2020-02-09 09:29 | DS ---
(1) Hypoxia Problem: Acute (2) Pneumonia Problem: Acute Qualifiers: Laterality: left Lung location: lower lobe of lung (3) Symptomatic anemia Problem: Acute (4) GI bleed Problem: Resolved Qualifiers: GI bleed type/associated pathology: melena Qualified Code(s): K92.1 - Melena (5) Chronic indwelling Saini catheter Problem: Chronic (6) Generalized weakness Problem: Acute (7) Transverse myelitis Problem: Chronic (8) Hyperlipidemia Problem: Chronic Qualifiers: Hyperlipidemia type: unspecified Qualified Code(s): E78.5 - Hyperlipidemia, unspecified (9) Constipation Problem: Acute Hospital Course: 89-year-old female with a past medical history of 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 She was found to have severe anemia with hemoglobin of 4.1 with guaiac positive stool. She received 2 units of IV of packed red blood cells. Her hemoglobin came up to 8.2. She has not had any bowel movement since admission. Today she continues to feel weak but she is tolerating her diet. CT abdomen pelvis performed on February 04, 2020 was positive for potential decubitus ulcer with underlying osteomyelitis. Patient has visible no ulcer, pain, fever or leukocytosis. I spoke with the radiologist on service this morning, Dr. Combs who reviewed the CT abdomen pelvis again for me. He stated that if there is no clinical signs of ulcer then the findings on CT scan may be secondary to artifact and normal variant. Patient declines to have any further work-up such as endoscopy or colonoscopy. He has not had any bowel movement since admission and her hemoglobin and hematocrit are stable at 8.5/28.3. I do not believe she is actively bleeding. She has been treated for UTI for the past several weeks with 2-3 courses of antibiotics. She is currently completing a course of nitrofurantoin. I will hold off on starting any new antibiotics. She is also following with urology as an outpatient. Prior to discharge she developed a mild leukocytosis with white count of 12.5, vitals are stable, no shortness of breath, or pain. Xanthomonas Maltophilia 40,000-50,000 CFU's. It is sensitive to Bactrim but she has no abdominal discomfort, fever or changes in mentation. I do not feel this needs to be treated at this time especially since she has had 3 rounds of antibiotics over the past 1 month for UTI symptoms. I do not want to create resistant organisms. She has also been seen by urology and they also stated in their most recent note to defer unnecessary treatment because her urine always grow something. I will monitor her hemoglobin with a CBC. I will order a CBC prior to her follow-up appointment with me within the next 1 week. Her WBC count has normalized today. Her shortness of breath has improved but she continues to require oxygen supplementation with 1 L via nasal cannula. She continues to require oxygen supplementation to keep her O2 level greater than 90%. She will be discharged to [facility] today. She is stable for discharge. She will continue with oxygen supplementation and attempt weaning at [facility]. Procedures Performed: none Results and Findings: Lab Pending Results 02/03/20 22:00: WBC 9.7, RBC 1.88 L, Hgb 4.1 L* D, Hct 15.4 L* D, MCV 81.9, MCH 21.8 L, MCHC 26.6 L, RDW 16.1 H, Plt Count 347, MPV 12.0, Immature Gran % (Auto) 0.70 H, Immature Gran # (Auto) 0.07 H, Neutrophils % 68.4, Lymphocytes % 14.4 L, Monocytes % 14.5 H, Eosinophils % 1.8, Basophils % 0.2, Nucleated RBC % 0.0, Neutrophils # 6.6 H, Lymphocytes # 1.40 L, Monocytes # 1.4 H, Eosinophils # 0.2, Absolute Basophils 0.0 02/03/20 22:00: Sodium 138, Plasma Sodium 139, Potassium 3.8, Chloride 106, Carbon Dioxide 23.4 L, Anion Gap 12.4, BUN 17 D, Creatinine 0.80, Est GFR (Non- Af Amer) 72 D, BUN/Creatinine Ratio 21.3, Random Glucose 145 H, Calcium 8.2, Calcium Adj for Albumin 8.9, Total Bilirubin 0.1, AST 15, ALT 8 L, Alkaline Phosphatase 93, Troponin I Less than 0.017, Total Protein 6.4, Albumin 2.7 L 02/03/20 22:00: Urine Color Yellow, Urine Appearance Slightly cloudy, Urine pH 7.0, Ur Specific [place] 1.015, Urine Protein Negative, Urine Glucose (UA) Negative, Urine Ketones Negative, Urine Blood Negative, Urine Nitrate Negative, Urine Bilirubin Negative, Urine Urobilinogen Normal, Ur Leukocyte Esterase 75 H, Urine RBC None seen, Urine WBC 0-5, Ur Epithelial Cells 0-5, Urine Bacteria 1+ H, Urine Yeast Moderate - 2+ H, Urine Culture Comments Culture to follow 02/03/20 22:00: Iron 9 L, TIBC 420, Transferrin % Sat 2 L 02/03/20 22:00: Ferritin 15 02/03/20 22:13: Stool Occult Blood Positive H 02/03/20 22:20: Blood Type A Positive, Antibody Screen Positive, Antibody Identification Anti-I, Crossmatch See Detail 02/04/20 23:55: Hgb 8.2 L, Hct 26.7 L 02/05/20 10:29: WBC 9.2, RBC 3.23 L, Hgb 8.5 L, Hct 27.7 L, MCV 85.8, MCH 26.3 L, MCHC 30.7 L, RDW 16.2 H, Plt Count 273, MPV 12.9 H, Immature Gran % (Auto) 1.30 H, Immature Gran # (Auto) 0.12 H, Neutrophils % 83.7 H, Lymphocytes % 6.5 L, Monocytes % 8.1, Eosinophils % 0.0, Basophils % 0.4, Nucleated RBC % 0.1, Neutrophils # 7.7 H, Lymphocytes # 0.60 L, Monocytes # 0.7, Eosinophils # 0.0, Absolute Basophils 0.0 02/05/20 10:29: Sodium 138, Plasma Sodium 139, Potassium 3.7, Chloride 106, Car bon Dioxide 24.6, Anion Gap 11.1, BUN 18, Creatinine 0.68, Est GFR (Non-Af Amer) 87 D, BUN/Creatinine Ratio 26.5 H, Random Glucose 147 H, Calcium 7.9, Calcium Adj for Albumin 8.6, Total Bilirubin 0.4, AST 29, ALT 25, Alkaline Phosphatase 106, Total Protein 6.3, Albumin 2.7 L 02/06/20 06:05: WBC 12.5 H D, RBC 3.26 L, Hgb 8.5 L, Hct 28.3 L, MCV 86.8, MCH 26.1 L, MCHC 30.0 L, RDW 16.8 H, Plt Count 264, MPV 12.7 H, Neutrophils % (Manual) 70, Lymphocytes % (Manual) 15 L, Monocytes % (Manual) 13 H, Eosinophils % (Manual) 2, Neutrophils # (Manual) 8.8 H, Lymphocytes # (Manual) 1.9, Monocytes # (Manual) 1.6 H, Eosinophils # (Manual) 0.3, Platelet Estimate Normal, RBC Morphology Normal 02/06/20 06:05: Sodium 138, Plasma Sodium 138, Potassium 3.6, Chloride 104, Carbon Dioxide 26.4, Anion Gap 11.2, BUN 23, Creatinine 0.92, Est GFR (Non-Af Amer) 61 D, BUN/Creatinine Ratio 25.0 H, Random Glucose 118 H, Calcium 7.9, Calcium Adj for Albumin 8.7, Total Bilirubin 0.3, AST 21, ALT 21, Alkaline Phosphatase 106, Total Protein 6.1 L, Albumin 2.6 L 02/06/20 13:37: Troponin I 0.069 02/06/20 13:47: pCO2 27.7 L, pO2 62.2 L, HCO3 17.4 L, Total CO2 18.3 L, Base Excess -6.2 L, ABG pH 7.42, ABG O2 Sat (Measured) 92.6 L 02/06/20 14:07: SARS-CoV-2 (PCR) Not detected 02/07/20 06:30: WBC 15.0 H, RBC 3.22 L, Hgb 8.4 L, Hct 28.2 L, MCV 87.6, MCH 26.1 L, MCHC 29.8 L, RDW 17.3 H, Plt Count 213, MPV 12.5, Neutrophils % (Manual) 84 H, Lymphocytes % (Manual) 4 L, Monocytes % (Manual) 10 H, Eosinophils % (Manual) 2, Neutrophils # (Manual) 12.6 H, Lymphocytes # (Manual) 0.6 L, Monocytes # (Manual) 1.5 H, Eosinophils # (Manual) 0.3, Platelet Estimate Normal, RBC Morphology Normal 02/07/20 06:30: Sodium 139, Plasma Sodium 139, Potassium 3.1 L, Chloride 104, Carbon Dioxide 29.4, Anion Gap 8.7, BUN 15, Creatinine 0.80, Est GFR (Non-Af Am er) 72, BUN/Creatinine Ratio 18.8, Random Glucose 126 H, Calcium 8.1, Calcium Adj for Albumin 9.1, Total Bilirubin 0.2, AST 16, ALT 15 L, Alkaline Phosphatase 99, Total Protein 6.0 L, Albumin 2.3 L 02/08/20 06:40: WBC 11.8 H D, RBC 3.35 L, Hgb 8.8 L, Hct 29.3 L, MCV 87.5, MCH 26.3 L, MCHC 30.0 L, RDW 17.8 H, Plt Count 223, MPV 13.1 H, Neutrophils % (Manual) 76 H, Lymphocytes % (Manual) 11 L, Monocytes % (Manual) 13 H, Neutrophils # (Manual) 9.0 H, Lymphocytes # (Manual) 1.3 L, Monocytes # (Manual) 1.5 H, Platelet Estimate Normal, RBC Morphology Normal 02/08/20 06:40: Sodium 138, Plasma Sodium 138, Potassium 3.7, Chloride 103, Carbon Dioxide 30.5, Anion Gap 8.2, BUN 13, Creatinine 0.76, Est GFR (Non-Af Amer) 77, BUN/Creatinine Ratio 17.1, Random Glucose 125 H, Calcium 8.3, Calcium Adj for Albumin 9.4, Total Bilirubin 0.2, AST 15, ALT 14 L, Alkaline Phosphatase 97, Total Protein 6.1 L, Albumin 2.2 L 02/09/20 06:30: WBC 9.9, RBC 3.25 L, Hgb 8.3 L, Hct 28.0 L, MCV 86.2, MCH 25.5 L, MCHC 29.6 L, RDW 18.5 H, Plt Count 200, MPV 12.6 H, Immature Gran % (Auto) 0.60 H, Immature Gran # (Auto) 0.06 H, Neutrophils % 64.9, Lymphocytes % 16.9 L, Monocytes % 14.4 H, Eosinophils % 2.4, Basophils % 0.8, Nucleated RBC % 0.0, Neutrophils # 6.4 H, Lymphocytes # 1.67, Monocytes # 1.4 H, Eosinophils # 0.2, Absolute Basophils 0.1 02/09/20 06:30: Sodium 138, Plasma Sodium 138, Potassium 3.6, Chloride 103, Carbon Dioxide 31.0, Anion Gap 7.6, BUN 10, Creatinine 0.72, Est GFR (Non-Af Amer) 81, BUN/Creatinine Ratio 13.9, Random Glucose 112 H, Calcium 8.1, Calcium Adj for Albumin 9.3, Total Bilirubin 0.1, AST 13, ALT 14 L, Alkaline Phosphatase 92, Total Protein 5.9 L, Albumin 2.1 L Discharge Location: [facility] Disposition: SNF Condition: Fair Level of Care: SNF Discharge Activity: Weight bearing Discharge Diet: General/regular food Prison Therapy: Physical Therapy, Occupation Therapy Referrals: Dayana Martell MD [Primary Care Provider] - Problem Oriented Discharge Instructions to Patient/Family: Anemia Additional Patient Instructions (free text): [facility] Follow up with Dr. Martell February 13 at 2:00p.m. and obtain a CBC prior to her appointment. James has appointment the same day and time. She will also need an outpatient sleep study because her oxygen level dropped into the high 80s at night while hospitalized she responded well to oxygen via nasal cannula. Continue with oxygen supplementation via nasal cannula to keep goal oxygen level greater than 90%. Attempt to wean off of oxygen as tolerated. Prescriptions (Any new or edited meds): Docusate Sodium [Colace] 100 mg PO BID #30 cap Transmission Status: Received by [facility] Bisacodyl [Dulcolax] 5 mg PO DAILY PRN #10 tablet.dr COLE Reason: Constipation Transmission Status: Pending to [facility] Levofloxacin [Levaquin] 750 mg PO DAILY@1100 #1 tab Transmission Status: Received by [facility] Complete Home Medications List: Complete Home Medication List: Aspirin [Aspirin EC] 81 mg PO DAILY 01/22/18 cranberry 400 mg capsule 400 mg PO DAILY 05/30/18 lactobacillus combination no.8 3 billion cell capsule 3,000 mmu cells PO DAILY 09/21/19 multivitamin 1 tab PO DAILY 09/21/19 gabapentin 400 mg capsule 400 mg PO HS #1 cap 01/05/20 gabapentin 800 mg tablet 800 mg PO QID #1 tab 01/05/20 sennosides 8.6 mg tablet 4.3 mg PO HS tab 01/25/20 Bisacodyl [Dulcolax] 5 mg PO DAILY PRN #10 tablet. 02/09/20 Docusate Sodium [Colace] 100 mg PO BID #30 cap 02/09/20 Levofloxacin [Levaquin] 750 mg PO DAILY@1100 #1 tab 02/09/20 Amb Orders for Discharge: CBC Time Frame: 1 Week, Facility: [facility], Location: Laboratory Forms: Patient Portal Registration
[2020-02-09 11:26] VITALS: BP 141/79
== END 2020-02-09 12:00 | DRG 377 ==
LOC: MS 21:45 → ER 21:45 → MS 23:58
PROVIDERS: ADMIT Family Medicine; ATTEND Internal Medicine
DX: R53.1 Weakness; G37.3 Acute transverse myelitis in demyelinating disease of central nervous system; E78.5 Hyperlipidemia, unspecified; N31.9 Neuromuscular dysfunction of bladder, unspecified; K58.9 Irritable bowel syndrome, unspecified; R07.9 Chest pain, unspecified; K92.1 Melena; R42 Dizziness and giddiness; D63.8 Anemia in other chronic diseases classified elsewhere; K59.00 Constipation, unspecified; K92.2 Gastrointestinal hemorrhage, unspecified; G82.20 Paraplegia, unspecified; T83.511A Infection and inflammatory reaction due to indwelling urethral catheter, initial encounter; D50.0 Iron deficiency anemia secondary to blood loss (chronic); G62.9 Polyneuropathy, unspecified; J18.9 Pneumonia, unspecified organism; Z85.42 Personal history of malignant neoplasm of other parts of uterus; R09.02 Hypoxemia
CPT/HCPCS: 36415; 36600; 71010; 71020; 71045; 71046; 74177; 80053; 81001; 82272; 82728; 82803; 83540; 83550; 84484; 85007; 85014; 85018; 85025; 86850; 86870; 87077; 87081; 87086; 87186; 93005; 94640; 94664; 96365; 96367; 96375; 96376; 97110; 97162; 97530; 99284; G0378; J2405; P9016; Q9963; Q9967

== ENCOUNTER 2020-09-28 15:10 | Observation (INO) ==
[2020-09-28] MEDS ORDERED: NORMAL SALINE 1,000 ML IV ONE (15:14)
[2020-09-28] MEDS ORDERED: ONDANSETRON HCL/PF 2 MG/ML VIAL IV ONE (15:14)
[2020-09-28] MEDS ORDERED: DIATRIZOATE MEGLUMINE, SODIUM 30 ML BTL PO ONE (15:15)
--- NOTE | 2020-09-28 15:25 | ERNOTE ---
Abdominal HPI - Narrative Date of Service: 09/28/20 - General Chief Complaint: Abdominal Pain Time Seen by Provider: 09/28/20 15:10 Source: patient Exam Limitations: no limitations - Immun/Allergies/Home Medications Immunizatons: IMMUNIZATION HX Immunizations Up to Date Yes History of Influenza Vaccine Yes Hx Pneumococcal Vaccination Yes Allergies/Adverse Reactions: Allergies morphine Allergy (Verified 09/28/20 15:17) Lactose intolerant Allergy (Intermediate, Uncoded 09/28/20 15:17) Per patient.lb Home Medications: HOME MEDICATIONS Aspirin [Aspirin EC] 81 mg PO DAILY 01/22/18 [Last Taken 02/03/20] cranberry 400 mg capsule 400 mg PO DAILY 05/30/18 [Last Taken 02/03/20] lactobacillus combination no.8 3 billion cell capsule 3,000 mmu cells PO DAILY 09/21/19 [Last Taken 02/03/20] multivitamin 1 tab PO DAILY 09/21/19 [Last Taken 02/03/20] sennosides 8.6 mg tablet 17.2 mg PO HS tab 01/25/20 [Last Taken 02/03/20] simethicone 125 mg capsule 125 mg PO QID PRN #1 cap 03/25/20 [Last Taken Unknown] gabapentin 800 mg tablet 800 mg PO QID #360 tab 08/05/20 [Last Taken Unknown] Gabapentin 200 mg PO HS 09/28/20 [Last Taken Unknown] Oxybutynin Chloride [Ditropan] 5 mg PO TID 09/28/20 [Last Taken Unknown] - History of Present Illness Narrative: Patient presents to the ED for right sided abdominal pain. This started overnight. Fairly diffuse right side. Never had anything like this before. No CP or SOB. No fever. No vomiting. Has been having some diarrhea but no blood in stool Nothing makes this better or worse. Has not seen anyone else for this. Timing: constant Quality: moderate Activities at Onset: none Modifying Factors - (Improves): Present: other - nothing Modifying Factors - (Worsens): Present: other - nothing Associated Symptoms: Absent: chest pain, diarrhea-gross blood, fever/chills, shortness of breath Prior Abdominal Problems: Absent: similar symptoms Prior Treatment: Absent: recently seen Review of Systems - Review of Systems Constitutional: Absent: fever Respiratory: Absent: shortness of breath Cardiology: Absent: chest pain Gastrointestinal/Abdominal: Present: See HPI Genitourinary: Absent: dysuria Neurological: Absent: weakness All Other Systems: All systems neg except as marked Medical History (Last Reviewed 09/28/20 @ 15:23 by Panda Kiran MD) Has received influenza vaccination in current influenza season (Acute) Systolic murmur (Chronic) Urge incontinence (Chronic) Onset Date: Unknown Transverse myelitis (Chronic) Onset Date: 08/2016 Peripheral neuropathy (Chronic) Onset Date: Unknown Neuromyelitis optica (Chronic) Onset Date: 07/2016 [facility] Mitral valve disorder (Chronic) Onset Date: 1993 prolapse Lesion of lumbar spine (Chronic) Onset Date: Unknown Arthritis (Chronic) Onset Date: 2011 Hypervitaminosis D (Chronic) Onset Date: 07/2017 Hemorrhoids (Chronic) Onset Date: Unknown 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 Chest wall contusion (Acute) Urinary tract infection (Chronic) Lower extremity weakness (Chronic) Weakness of lower extremity (Chronic) Spinal cord lesion (Acute) Saini catheter problem (Acute) Urinary tract infection associated with indwelling urethral catheter (Suspected) Urinary catheter (Saini) change required (Acute) UTI symptoms (Acute) hx of hemorrhoid surgery (Chronic) Dislodged Saini catheter (Acute) Paraplegia (Chronic) Onset Date: Unknown Osteoporosis (Chronic) Onset Date: Unknown Neurogenic bowel (Chronic) Onset Date: Unknown Macular degeneration (Chronic) Onset Date: Unknown Kyphosis (Chronic) Onset Date: Unknown IBS (irritable bowel syndrome) (Chronic) Onset Date: Unknown Hyperlipidemia (Chronic) Onset Date: Unknown UTI (urinary tract infection) (Chronic) Onset Date: Unknown Surgical History: Surgical History (Last Reviewed 09/28/20 @ 15:23 by Panda Kiran MD) FHx: FLETCHER-BSO (total abdominal hysterectomy and bilateral salpingo-oophorectomy) Onset Date: ~1986 H/O hemorrhoidectomy Onset Date: 1991 H/O laminectomy Onset Date: Unknown History of YAG laser capsulotomy of lens Onset Date: ~2008 Hx of appendectomy Onset Date: ~1986 Hx of cataract surgery Onset Date: ~2007 Hx of cholecystectomy Onset Date: 03/12/09 Loss of teeth due to extraction Onset Date: Unknown Family History: Family History (Last Reviewed 09/28/20 @ 15:23 by Panda Kiran MD) Father , age 86 COPD (chronic obstructive pulmonary disease) CHF (congestive heart failure) Mother , age 83 CHF (congestive heart failure) Diabetes Social History: (Last Reviewed 09/28/20 @ 15:23 by Panda Kiran MD) Social History: mcfp: Yes Marital status: lives independently: No household members: spouse current occupational status: retired Highest level of school completed/degree received: high school graduate Service: No Tobacco: Smoking Status: Never smoker second hand exposure: No Alcohol: alcohol intake: never Substance Use: substance use type: does not use Dietary Habits: caffeine: Yes caffeine comment: everyday Exercise: Physical activity type: none frequency: does not exercise Physical Exam - Physical Exam General Appearance: Present: alert, no apparent distress Head Exam: Present: normal inspection, no evidence of injury Eye Exam: Normal inspection: bilateral, PERRL: bilateral Ears, Nose, Throat: Present: normal ENT inspection Neck: Present: normal inspection Respiratory: Present: no respiratory distress, normal breath sounds, no accessory muscle use, lungs clear Cardiovascular/Chest: Present: regular rate, rhythm, normal peripheral pulses Gastrointestinal/Abdominal: Present: normal bowel sounds, soft, other - right mid abdominal tenderness, mild, no peritoneal signs, no masses noted Back Exam: Absent: CVA tenderness (R), CVA tenderness (L) Extremity Exam: Present: normal range of motion Neurological Exam: Present: alert, no motor/sensory deficits Skin Exam: Present: normal color, warm/dry Progress - Results and Orders Patient's Lab Results:: I have reviewed the patient's lab results. - Vital Signs Patient's Vital Signs:: I have reviewed the patient's vital signs. Vital Signs: Vital Signs 09/28/20 15:12 Temperature 36.6 C Pulse Rate 93 Respiratory Rate 11 L Blood Pressure 167/73 H - CT/Ultrasound CT/Ultrasound Narrative: I reviewed official radiology report for CT abd/pelvis - Progress/Reassessment Chief Complaint: Abdominal Pain Progress Note-Subjective: 09/28/20 17:37 IV placed. 1st Unit PRBCs started. Stool guaiac negative at this time. She needs admission for transfusion. She is agreeable. 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 D/W Dr Wakefield who will admit. Departure Clinical Impression: Abdominal pain, Severe anemia - Departure Disposition: Still a patient Condition: Fair Referrals: Dayana Mccall MD [Primary Care Provider] -
[2020-09-28 15:41] LABS: Mean Cell Volume 72.4 fl (78-100); Mean Corpuscular Hemoglobin 18.6 pg (27-31); Mean Corpuscular Hgb Conc 25.7 g/dl (32-36); Mean Platelet Volume 12.5 fl (8-12.5); Platelet Count 278 K/mm3 (150-450); Red Blood Count 2.79 M/mm3 (4.2-5.4); Red Cell Distribution Width 19.2 % (11.5-14.0); White Blood Count 5.8 K/mm3 (4.0-10.5)
[2020-09-28 15:45] LABS: Hematocrit 20.2 % (37.0-47.0); Hemoglobin 5.2 gm/dL (12.5-16.0)
[2020-09-28 15:46] LABS: Total Cells Counted 100
[2020-09-28 15:47] LABS: Albumin * 3.2 gm/dl (3.4-5.0); Anion Gap 12.3 mmol/L (6.8-13.8); BUN/Creatinine Ratio 23.4 (9.0-21.6); Bilirubin, Total 0.2 mg/dL (0.0-1.1); Ca. Corrected For Albumin 8.7 mg/dL (8.4-10.2); Calcium * 8.4 mg/dL (7.9-10.9); Carbon Dioxide 24.4 mmol/L (24-32.6); Potassium 3.7 mmol/L (3.4-4.6); Total Protein 7.2 gm/dL (6.2-8.2)
[2020-09-28 16:01] LABS: INR 1.06 INR (0.92-1.08); Partial Thrombolplastin Time 24.1 Seconds (24-32)
[2020-09-28 16:13] LABS: Eosinophil 1 % (0-3); Lymphocyte 15 % (20-51); Monocyte 18 % (0-9); Neutrophil 66 % (42-75); Neutrophil # 3.8 K/mm3 (1.3-6.0)
[2020-09-28 16:14] LABS: Anisocytosis 1+; Hypochromia 2+; Platelet Estimate Normal (NORMAL)
[2020-09-28 16:30] LABS: Urine Appearance Slightly Cloudy (CLEAR); Urine Bilirubin Negative (NEGATIVE); Urine Blood Negative /ul (NEGATIVE); Urine Color Yellow; Urine Ketone Negative (NEGATIVE); Urine Nitrite Positive (NEGATIVE); Urine Protein 30 mg/dL (NEGATIVE); Urine Urobilinogen Normal (NORMAL); Urine pH 5.5 pH (5.0-7.0)
[2020-09-28 16:32] LABS: Urine Bacteria 3+; Urine RBC None Seen /hpf (0-5)
[2020-09-28] MEDS ORDERED: cefTRIAXone SODIUM 1,000 MG/100 ML BAG IV ONE (17:07)
[2020-09-28] MEDS ORDERED: fentaNYL CITRATE/PF 50 MCG/ML AMPUL IV ONE (17:32)
[2020-09-28] MEDS ORDERED: ACETAMINOPHEN 1,000 MG/100 ML BTL IV ONE (20:15)
--- NOTE | 2020-09-28 20:20 | HP ---
Chief Complaint - Chief Complaint Date of Service: 09/28/20 Time of Service: 20:07 Chief Complaint: anemia History of Present Illness: Patient with past medical history of chronic GI bleeding, transverse myelitis, paraplegia, neurogenic bladder presents with right-sided abdominal pain. She had her second Covid vaccine 2 days prior. Has had diarrhea since that second vaccine. Work-up in the ED showed severe anemia with a hemoglobin of 5.4, and 1 unit PRBCs was ordered. Hemoccult was negative. Chart review shows a similar presentation last summer. Her baseline hemoglobin appears to be around 9. Medical History (Last Reviewed 09/28/20 @ 15:23 by Panda Kiran MD) Has received influenza vaccination in current influenza season (Acute) Systolic murmur (Chronic) Urge incontinence (Chronic) Onset Date: Unknown Transverse myelitis (Chronic) Onset Date: 08/2016 Peripheral neuropathy (Chronic) Onset Date: Unknown Neuromyelitis optica (Chronic) Onset Date: 07/2016 [facility] Mitral valve disorder (Chronic) Onset Date: 1993 prolapse Lesion of lumbar spine (Chronic) Onset Date: Unknown Arthritis (Chronic) Onset Date: 2011 Hypervitaminosis D (Chronic) Onset Date: 07/2017 Hemorrhoids (Chronic) Onset Date: Unknown 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 Chest wall contusion (Acute) Urinary tract infection (Chronic) Lower extremity weakness (Chronic) Weakness of lower extremity (Chronic) Spinal cord lesion (Acute) Saini catheter problem (Acute) Urinary tract infection associated with indwelling urethral catheter (Suspected) Urinary catheter (Saini) change required (Acute) UTI symptoms (Acute) hx of hemorrhoid surgery (Chronic) Dislodged Saini catheter (Acute) Paraplegia (Chronic) Onset Date: Unknown Osteoporosis (Chronic) Onset Date: Unknown Neurogenic bowel (Chronic) Onset Date: Unknown Macular degeneration (Chronic) Onset Date: Unknown Kyphosis (Chronic) Onset Date: Unknown IBS (irritable bowel syndrome) (Chronic) Onset Date: Unknown Hyperlipidemia (Chronic) Onset Date: Unknown UTI (urinary tract infection) (Chronic) Onset Date: Unknown Surgical History: Surgical History (Last Reviewed 09/28/20 @ 15:23 by Panda Kiran MD) FHx: FLETCHER-BSO (total abdominal hysterectomy and bilateral salpingo-oophorectomy) Onset Date: H/O hemorrhoidectomy Onset Date: 1991 H/O laminectomy Onset Date: Unknown History of YAG laser capsulotomy of lens Onset Date: ~2008 Hx of appendectomy Onset Date: ~1986 Hx of cataract surgery Onset Date: ~2007 Hx of cholecystectomy Onset Date: 03/12/09 Loss of teeth due to extraction Onset Date: Unknown Family History: Family History (Last Reviewed 09/28/20 @ 15:23 by Panda Kiran MD) Father , age 86 COPD (chronic obstructive pulmonary disease) CHF (congestive heart failure) Mother , age 83 CHF (congestive heart failure) Diabetes Social History: (Last Reviewed 09/28/20 @ 15:23 by Panda Kiran MD) Social History: [facility] [facility] Yes Marital status: lives independently: No household members: spouse current occupational status: retired Highest level of school completed/degree received: high school graduate Service: No Tobacco: Smoking Status: Never smoker second hand exposure: No Alcohol: alcohol intake: never Substance Use: substance use type: does not use Dietary Habits: caffeine: Yes caffeine comment: everyday Exercise: Physical activity type: none frequency: does not exercise Review Of Systems (GEN) - Review of Systems Generalized/Overall Review: Present: Weakness. Absent: Fever Respiratory: Absent: Shortness of Breath Cardiac: Absent: Chest Pain, Edema Abdominal: Present: Abdominal Pain, Diarrhea. Absent: Nausea Genitourinary: Present: Retention Musculoskeletal: Present: Other - Paraplegia Immunizations: IMMUNIZATION HX Immunizations Up to Date Yes History of Influenza Vaccine Yes Hx Pneumococcal Vaccination Yes Allergies/Adverse Reactions: Allergies Allergy/AdvReac Type Severity Reaction Status Date / Time morphine Allergy Verified 09/28/20 15:17 Lactose intolerant Allergy Intermediate Uncoded 09/28/20 15:17 Home Medications: HOME MEDICATIONS Aspirin [Aspirin EC] 81 mg PO DAILY 01/22/18 [Last Taken 02/03/20] cranberry 400 mg capsule 400 mg PO DAILY 05/30/18 [Last Taken 02/03/20] lactobacillus combination no.8 3 billion cell capsule 3,000 mmu cells PO DAILY 09/21/19 [Last Taken 02/03/20] multivitamin 1 tab PO DAILY 09/21/19 [Last Taken 02/03/20] sennosides 8.6 mg tablet 17.2 mg PO HS tab 01/25/20 [Last Taken 02/03/20] simethicone 125 mg capsule 125 mg PO QID PRN #1 cap 03/25/20 [Last Taken Unknown] gabapentin 800 mg tablet 800 mg PO QID #360 tab 08/05/20 [Last Taken Unknown] Gabapentin 200 mg PO HS 09/28/20 [Last Taken Unknown] Oxybutynin Chloride [Ditropan] 5 mg PO TID 09/28/20 [Last Taken Unknown] Exam - Exam Vital Signs: Vital Signs - Last Taken Temp 37.2 C 09/28/20 20:02 Pulse 96 09/28/20 20:02 Resp 20 09/28/20 20:02 BP 141/54 09/28/20 20:02 Pulse Ox 93 09/28/20 20:02 Constitutional: Present: Alert, Cooperative, Elderly Respiratory: Present: normal breath sounds, no respiratory distress Cardiovascular/Chest: Present: tachycardia, systolic murmur Abdomen: Present: soft, tender - Right-sided Extremity: Absent: lower extremity edema Neurologic: Present: other - Word finding difficulty Eye contact: Present: cooperative, good eye contact Diagnostic Studies: Abnormal Lab Results 09/28/20 09/28/20 09/28/20 Range/Units 15:30 15:30 15:30 RBC 2.79 L (4.2-5.4) M/mm3 Hgb 5.2 L* D (12.5-16.0) gm/dL Hct 20.2 L* D (37.0-47.0) % MCV 72.4 L (78-100) fl MCH 18.6 L (27-31) pg MCHC 25.7 L (32-36) g/dl RDW 19.2 H (11.5-14.0) % Lymphocytes % (Manual) 15 L (20-51) % Monocytes % (Manual) 18 H (0-9) % Lymphocytes # (Manual) 0.9 L (1.5-3.5) k/mm3 PT 11.0 H (9.1-10.7) Seconds BUN/Creatinine Ratio 23.4 H (9.0-21.6) Random Glucose 127 H (70-110) mg/dL ALT 15 L (19-67) U/L Albumin 3.2 L (3.4-5.0) gm/dl Lipase 66 L (73-393) U/L Urine Protein (NEGATIVE) mg/dL Urine Nitrate (NEGATIVE) Urine WBC (0-5) /hpf Urine Bacteria (NONE) Crossmatch 09/28/20 09/28/20 Range/Units 16:00 16:05 RBC (4.2-5.4) M/mm3 Hgb (12.5-16.0) gm/dL Hct (37.0-47.0) % MCV (78-100) fl MCH (27-31) pg MCHC (32-36) g/dl RDW (11.5-14.0) % Lymphocytes % (Manual) (20-51) % Monocytes % (Manual) (0-9) % Lymphocytes # (Manual) (1.5-3.5) k/mm3 PT (9.1-10.7) Seconds BUN/Creatinine Ratio (9.0-21.6) Random Glucose (70-110) mg/dL ALT (19-67) U/L Albumin (3.4-5.0) gm/dl Lipase (73-393) U/L Urine Protein 30 H (NEGATIVE) mg/dL Urine Nitrate Positive H (NEGATIVE) Urine WBC 10-25 H (0-5) /hpf Urine Bacteria 3+ H (NONE) Crossmatch See Detail Laboratory Results WBC 5.8 K/mm3 (4.0-10.5) 09/28/20 15:30 RBC 2.79 M/mm3 (4.2-5.4) L 09/28/20 15:30 Hgb 5.2 gm/dL (12.5-16.0) L* D 09/28/20 15:30 Hct 20.2 % (37.0-47.0) L* D 09/28/20 15:30 MCV 72.4 fl (78-100) L 09/28/20 15:30 MCH 18.6 pg (27-31) L 09/28/20 15:30 MCHC 25.7 g/dl (32-36) L 09/28/20 15:30 RDW 19.2 % (11.5-14.0) H 09/28/20 15:30 Plt Count 278 K/mm3 (150-450) 09/28/20 15:30 MPV 12.5 fl (8-12.5) 09/28/20 15:30 Neutrophils % (Manual) 66 % (42-75) 09/28/20 15:30 Lymphocytes % (Manual) 15 % (20-51) L 09/28/20 15:30 Monocytes % (Manual) 18 % (0-9) H 09/28/20 15:30 Eosinophils % (Manual) 1 % (0-3) 09/28/20 15:30 Neutrophils # (Manual) 3.8 K/mm3 (1.3-6.0) 09/28/20 15:30 Lymphocytes # (Manual) 0.9 k/mm3 (1.5-3.5) L 09/28/20 15:30 Monocytes # (Manual) 1.0 k/mm3 (0.0-1.0) 09/28/20 15:30 Eosinophils # (Manual) 0.1 k/mm3 (0.0-0.7) 09/28/20 15:30 Platelet Estimate Normal (NORMAL) 09/28/20 15:30 Hypochromasia 2+ 09/28/20 15:30 Anisocytosis 1+ 09/28/20 15:30 PT 11.0 Seconds (9.1-10.7) H 09/28/20 15:30 INR (Anticoag Therapy) 1.06 INR (0.92-1.08) 09/28/20 15:30 PTT ([place]) 24.1 Seconds (24-32) 09/28/20 15:30 Sodium 137 mmol/L (132-142) 09/28/20 15:30 Plasma Sodium 137 mmol/L (130-142) 09/28/20 15:30 Potassium 3.7 mmol/L (3.4-4.6) 09/28/20 15:30 Chloride 104 mmol/L (97-106) 09/28/20 15:30 Carbon Dioxide 24.4 mmol/L (24-32.6) 09/28/20 15:30 Anion Gap 12.3 mmol/L (6.8-13.8) 09/28/20 15:30 BUN 15 mg/dL (3-23) 09/28/20 15:30 Creatinine 0.64 mg/dL (0.4-1.4) 09/28/20 15:30 Est GFR (Non-Af Amer) 93 mL/min (60-130) 09/28/20 15:30 BUN/Creatinine Ratio 23.4 (9.0-21.6) H 09/28/20 15:30 Random Glucose 127 mg/dL (70-110) H 09/28/20 15:30 Calcium 8.4 mg/dL (7.9-10.9) 09/28/20 15:30 Calcium Adj for Albumin 8.7 mg/dL (8.4-10.2) 09/28/20 15:30 Total Bilirubin 0.2 mg/dL (0.0-1.1) 09/28/20 15:30 AST 22 U/L (0-48) 09/28/20 15:30 ALT 15 U/L (19-67) L 09/28/20 15:30 Alkaline Phosphatase 104 U/L (50-170) 09/28/20 15:30 Total Protein 7.2 gm/dL (6.2-8.2) 09/28/20 15:30 Albumin 3.2 gm/dl (3.4-5.0) L 09/28/20 15:30 Lipase 66 U/L (73-393) L 09/28/20 15:30 Urine Color Yellow 09/28/20 16:05 Urine Appearance Slightly cloudy (CLEAR) 09/28/20 16:05 Urine pH 5.5 pH (5.0-7.0) 09/28/20 16:05 Ur Specific [place] 1.030 SP.GR. (1.005-1.010) 09/28/20 16:05 Urine Protein 30 mg/dL (NEGATIVE) H 09/28/20 16:05 Urine Glucose (UA) Negative mg/dL (NEGATIVE) 09/28/20 16:05 Urine Ketones Negative mg/dL (NEGATIVE) 09/28/20 16:05 Urine Blood Negative /ul (NEGATIVE) 09/28/20 16:05 Urine Nitrate Positive (NEGATIVE) H 09/28/20 16:05 Urine Bilirubin Negative mg/dl (NEGATIVE) 09/28/20 16:05 Urine Urobilinogen Normal EU/dl (NORMAL) 09/28/20 16:05 Ur Leukocyte Esterase Negative /ul (NEGATIVE) 09/28/20 16:05 Urine RBC None seen /hpf (0-5) 09/28/20 16:05 Urine WBC 10-25 /hpf (0-5) H 09/28/20 16:05 Ur Epithelial Cells 0-5 /hpf (0-5) 09/28/20 16:05 Urine Bacteria 3+ (NONE) H 09/28/20 16:05 Urine Culture Comments Culture to follow 09/28/20 16:05 Stool Occult Blood Negative 09/28/20 16:38 SARS-CoV-2 (PCR) Not detected (NotDetected) 09/28/20 16:10 Blood Type A Positive 09/28/20 16:00 Antibody Screen Negative 09/28/20 16:00 Crossmatch See Detail 09/28/20 16:00 Assessment/Plan - Narrative Narrative: One unit PRBCs ordered by the ED, and will order another unit. Recheck hemoglobin pending for 1 hour after the second transfusion, and will check again in the morning. She was having diarrhea, but her stools are starting to get more formed. Negative Hemoccult in the ED. She is symptomatic currently with tachycardia and weakness. She has a murmur on exam, which she reports is longstanding. She has significant right-sided abdominal pain, which did not respond to fentanyl in the ED. Will administer IV Tylenol. She is having some trouble with word finding difficulty on my exam, suspect this is due to her severe anemia. In the past, she declined upper or lower endoscopies to investigate her chronic GI bleed. Will ask her about this again tomorrow after she has gotten transfused. Since arriving on the floor, her oxygen saturations decreased to 72%, so she has been started on 2 L nasal cannula and oxygenating at 93%. If her symptoms resolve after her transfusion, she could potentially leave as soon as tomorrow. - Assessment/Plan (1) Symptomatic anemia Problem: Acute (2) Abdominal pain Problem: Acute (3) Chronic indwelling Saini catheter Problem: Chronic (4) Transverse myelitis Problem: Chronic (5) Peripheral neuropathy Problem: Chronic Qualifiers: Peripheral neuropathy type: polyneuropathy, unspecified Qualified Code(s): G62.9 - Polyneuropathy, unspecified (6) Neuromyelitis optica Problem: Chronic (7) Mitral valve disorder Problem: Chronic (8) Paraplegia Problem: Chronic (9) Neurogenic bowel Problem: Chronic
[2020-09-29 05:16] LABS: Hematocrit 32.5 % (37.0-47.0); Hemoglobin 9.5 gm/dL (12.5-16.0); Mean Cell Volume 79.3 fl (78-100); Mean Corpuscular Hemoglobin 23.2 pg (27-31); Mean Corpuscular Hgb Conc 29.2 g/dl (32-36); Mean Platelet Volume 11.7 fl (8-12.5); Neutrophil # 4.9 K/mm3 (1.3-6.0); Neutrophil % 66.6 % (42-75.0); Platelet Count 221 K/mm3 (150-450); Red Cell Distribution Width 19.7 % (11.5-14.0); White Blood Count 7.3 K/mm3 (4.0-10.5)
[2020-09-29] MEDS ORDERED: SIMETHICONE 80 MG TAB.CHEW PO PRN (08:41)
[2020-09-29 12:09] LABS: Hemoglobin 9.3 gm/dL (12.5-16.0); Mean Cell Volume 78.6 fl (78-100); Mean Corpuscular Hemoglobin 22.9 pg (27-31); Mean Corpuscular Hgb Conc 29.1 g/dl (32-36); Mean Platelet Volume 11.6 fl (8-12.5); NRBC# 0.1 k/mm3 (0-1); Neutrophil # 7.5 K/mm3 (1.3-6.0); Neutrophil % 75.4 % (42-75.0); Platelet Count 222 K/mm3 (150-450); Red Blood Count 4.07 M/mm3 (4.2-5.4); Red Cell Distribution Width 19.6 % (11.5-14.0)
[2020-09-29 12:15] LABS: Total Cells Counted 100
[2020-09-29 12:52] LABS: Anisocytosis 2+; Band 4 % (0-2.0); Lymphocyte 8 % (20-51); Monocyte 8 % (0-9); Neutrophil 80 % (42-75); Platelet Estimate Normal (NORMAL)
[2020-09-29 12:53] LABS: Hypochromia 2+
--- NOTE | 2020-09-29 13:23 | DS ---
(1) Symptomatic anemia Problem: Resolved (2) Abdominal pain Problem: Resolved (3) Chronic indwelling Saini catheter Problem: Chronic (4) Transverse myelitis Problem: Chronic (5) Peripheral neuropathy Problem: Chronic Qualifiers: Peripheral neuropathy type: polyneuropathy, unspecified Qualified Code(s): G62.9 - Polyneuropathy, unspecified (6) Neuromyelitis optica Problem: Chronic (7) Mitral valve disorder Problem: Chronic (8) Paraplegia Problem: Chronic (9) Neurogenic bowel Problem: Chronic Date of Discharge:: 09/29/20 Hospital Course: Patient with past medical history of chronic GI bleeding, transverse myelitis, paraplegia, neurogenic bladder presents with right-sided abdominal pain. She do es not walk at baseline. She had her second Covid vaccine 2 days prior to admission. Has had diarrhea since that second vaccine. Work-up in the ED showed severe anemia with a hemoglobin of 5.4. Hemoccult was negative. Chart review shows a similar presentation last summer. Her baseline hemoglobin appears to be around 9. She was given two U PRBC, and hgb improved to 9.2 Her abdominal pain resolved. Tachycardia improved and she was able to oxygenate on room air. She declines upper or lower endoscopy to investigate source of her chronic bleed. She felt comfortable going back to the [facility] on the day of discharge. Procedures Performed: none Results and Findings: Pending Mircobiology Results 09/28/20 16:00 Urine,Clean Catch Urine Culture - Preliminary No Growth Lab Pending Results 09/28/20 15:30: WBC 5.8, RBC 2.79 L, Hgb 5.2 L* D, Hct 20.2 L* D, MCV 72.4 L, MCH 18.6 L, MCHC 25.7 L, RDW 19.2 H, Plt Count 278, MPV 12.5, Neutrophils % (Manual) 66, Lymphocytes % (Manual) 15 L, Monocytes % (Manual) 18 H, Eosinophils % (Manual) 1, Neutrophils # (Manual) 3.8, Lymphocytes # (Manual) 0.9 L, Monocytes # (Manual) 1.0, Eosinophils # (Manual) 0.1, Platelet Estimate Normal, Hypochromasia 2+, Anisocytosis 1+ 09/28/20 15:30: Sodium 137, Plasma Sodium 137, Potassium 3.7, Chloride 104, Carbon Dioxide 24.4, Anion Gap 12.3, BUN 15, Creatinine 0.64, Est GFR (Non-Af Amer) 93, BUN/Creatinine Ratio 23.4 H, Random Glucose 127 H, Calcium 8.4, Calcium Adj for Albumin 8.7, Total Bilirubin 0.2, AST 22, ALT 15 L, Alkaline Phosphatase 104, Total Protein 7.2, Albumin 3.2 L, Lipase 66 L 09/28/20 15:30: PT 11.0 H, INR (Anticoag Therapy) 1.06, PTT ([place]) 24.1 09/28/20 16:00: Blood Type A Positive, Antibody Screen Negative, Crossmatch See Detail 09/28/20 16:05: Urine Color Yellow, Urine Appearance Slightly cloudy, Urine pH 5.5, Ur Specific [place] 1.030, Urine Protein 30 H, Urine Glucose (UA) Negative, Urine Ketones Negative, Urine Blood Negative, Urine Nitrate Positive H, Urine Bilirubin Negative, Urine Urobilinogen Normal, Ur Leukocyte Esterase Negative, Urine RBC None seen, Urine WBC 10-25 H, Ur Epithelial Cells 0-5, Urine Bacteria 3+ H, Urine Culture Comments Culture to follow 09/28/20 16:10: SARS-CoV-2 (PCR) Not detected 09/28/20 16:38: Stool Occult Blood Negative 09/29/20 05:10: WBC 7.3 D, RBC 4.10 L, Hgb 9.5 L, Hct 32.5 L, MCV 79.3, MCH 23.2 L, MCHC 29.2 L, RDW 19.7 H, Plt Count 221, MPV 11.7, Immature Gran % (Auto) 0.50 H, Immature Gran # (Auto) 0.04 H, Neutrophils % 66.6, Lymphocytes % 11.2 L, Monocytes % 20.0 H, Eosinophils % 0.7, Basophils % 1.0, Nucleated RBC % 0.0, Neutrophils # 4.9, Lymphocytes # 0.82 L, Monocytes # 1.5 H, Eosinophils # 0.1, Absolute Basophils 0.1 09/29/20 12:01: WBC 10.0 D, RBC 4.07 L, Hgb 9.3 L, Hct 32.0 L, MCV 78.6, MCH 22.9 L, MCHC 29.1 L, RDW 19.6 H, Plt Count 222, MPV 11.6, Immature Gran % (Auto) 0.50 H, Immature Gran # (Auto) 0.05 H, Neutrophils % 75.4 H, Neutrophils % (Manual) 80 H, Band Neuts % (Manual) 4 H, Lymphocytes % 7.7 L, Lymphocytes % (Manual) 8 L, Monocytes % 15.6 H, Monocytes % (Manual) 8, Eosinophils % 0.3, Basophils % 0.5, Nucleated RBC % 0.1, Neutrophils # 7.5 H, Neutrophils # (Manual) 8.0 H, Lymphocytes # 0.77 L, Lymphocytes # (Manual) 0.8 L, Monocytes # 1.6 H, Monocytes # (Manual) 0.8, Eosinophils # 0.0, Absolute Basophils 0.1, Platelet Estimate Normal, Hypochromasia 2+, Anisocytosis 2+ Discharge Location: [facility] Disposition: Home self-care Condition: Fair Discharge Activity: Activity as tolerated Discharge Diet: General/regular food Referrals: Dayana Mccall MD [Primary Care Provider] - One Week Complete Home Medications List: Complete Home Medication List: Aspirin [Aspirin EC] 81 mg PO DAILY 01/22/18 cranberry 400 mg capsule 400 mg PO DAILY 05/30/18 lactobacillus combination no.8 3 billion cell capsule 3,000 mmu cells PO DAILY 09/21/19 multivitamin 1 tab PO DAILY 09/21/19 sennosides 8.6 mg tablet 17.2 mg PO HS tab 01/25/20 simethicone 125 mg capsule 125 mg PO QID PRN #1 cap 03/25/20 gabapentin 800 mg tablet 800 mg PO QID #360 tab 08/05/20 Gabapentin 200 mg PO HS 09/28/20 Oxybutynin Chloride [Ditropan] 5 mg PO TID 09/28/20
[2020-09-29 16:48] VITALS: BP 156/72
[2020-09-29] MEDS ORDERED: SENNOSIDES 8.6 MG TABLET PO SCH (21:00)
== END 2020-09-29 16:35 | disposition home or self-care (01) ==
LOC: ER 15:10 → MS 15:10
PROVIDERS: ADMIT Family Medicine; ATTEND Internal Medicine

== ENCOUNTER 2020-11-30 07:25 | Observation (INO) ==
--- NOTE | 2020-11-30 07:38 | ERNOTE ---
<Sobia Merino - Last Filed: 11/30/20 08:00> GI Bleeding/Rectal Pain ER Date of Service: 11/30/20 Presenting Symptoms: rectal bleeding Time Seen by Provider: 11/30/20 07:32 Immunizations: IMMUNIZATION HX Immunizations Up to Date Yes History of Influenza Vaccine Yes Hx Pneumococcal Vaccination Yes Allergies/Adverse Reactions: Allergies morphine Allergy (Verified 11/30/20 07:39) Lactose intolerant Allergy (Intermediate, Uncoded 11/30/20 07:39) Per patient.lb Home Medications: HOME MEDICATIONS Aspirin [Aspirin EC] 1 tab PO DAILY 01/22/18 [Last Taken 02/03/20] cranberry 400 mg capsule 1 cap PO DAILY 05/30/18 [Last Taken 02/03/20] lactobacillus combination no.8 3 billion cell capsule 3,000 mmu cells PO DAILY 09/21/19 [Last Taken 02/03/20] multivitamin 1 tab PO DAILY 09/21/19 [Last Taken 02/03/20] sennosides 8.6 mg tablet 2 tab PO HS PRN tab 01/25/20 [Last Taken 02/03/20] Gabapentin 200 mg PO HS 09/28/20 [Last Taken Unknown] Oxybutynin Chloride [Ditropan] 1 tab PO TID 09/28/20 [Last Taken Unknown] Gabapentin 1 tab PO QID 10/18/20 [Last Taken Unknown] Collagenase Clostridium Hist. [Santyl] 1 gm TP DAILY #1 tube 11/08/20 [Last Taken Unknown] Penicillin V Potassium [Pen-Vee K] 500 mg PO Q12H #20 tab 11/15/20 [Last Taken Unknown] Narrative: Patient sent here by ambulance after she had bright red blood in the stools this morning. She had diarrhea yesterday and had one bowel movement this morning which was described as a large amount of bright red blood. She has had this 1 other time in her life which required a blood transfusion. She is otherwise quite healthy, takes a short list of medication including aspirin 81 mg, gabapentin and oxybutynin. She does have a history of endometrial cancer, chronic UTIs, hyperlipidemia, mitral valve problems, peripheral neuropathy, transverse myelitis. Today she is complaining of uneasy feeling in the right lower quadrant. Denies nausea or vomiting or alla pain. She did feel dizzy when she was sitting on the stool but not now. Review of Systems - Review of Systems Constitutional: Present: weakness, fatigue EYE: Present: no symptoms reported ENT: Present: no symptoms reported Respiratory: Present: no symptoms reported Cardiology: Present: no symptoms reported Gastrointestinal/Abdominal: Present: See HPI. 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 [facility] of I Mitral valve disorder (Chronic) Onset Date: 1993 prolapse Lesion of lumbar spine (Chronic) Onset Date: Unknown Arthritis (Chronic) Onset Date: 2011 Hypervitaminosis D (Chronic) Onset Date: 07/2017 Hemorrhoids (Chronic) Onset Date: Unknown 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 Chest wall contusion (Acute) Urinary tract infection (Chronic) Lower extremity weakness (Chronic) Weakness of lower extremity (Chronic) Spinal cord lesion (Acute) Saini catheter problem (Acute) Urinary tract infection associated with indwelling urethral catheter (Suspected) Urinary catheter (Saini) change required (Acute) UTI symptoms (Acute) hx of hemorrhoid surgery (Chronic) Dislodged Saini catheter (Acute) Paraplegia (Chronic) Onset Date: Unknown Osteoporosis (Chronic) Onset Date: Unknown Neurogenic bowel (Chronic) Onset Date: Unknown Macular degeneration (Chronic) Onset Date: Unknown Kyphosis (Chronic) Onset Date: Unknown IBS (irritable bowel syndrome) (Chronic) Onset Date: Unknown Hyperlipidemia (Chronic) Onset Date: Unknown UTI (urinary tract infection) (Chronic) Onset Date: Unknown Surgical History: Surgical History (Last Reviewed 11/30/20 @ 07:35 by Sobia Merino MD) FHx: FLETCHER-BSO (total abdominal hysterectomy and bilateral salpingo-oophorectomy) Onset Date: ~1986 H/O hemorrhoidectomy Onset Date: 1991 H/O laminectomy Onset Date: Unknown History of YAG laser capsulotomy of lens Onset Date: ~2008 Hx of appendectomy Onset Date: ~1986 Hx of cataract surgery Onset Date: ~2007 Hx of cholecystectomy Onset Date: 03/12/09 Loss of teeth due to extraction Onset Date: Unknown Family History: Family History (Last Reviewed 11/30/20 @ 07:35 by Sobia Merino MD) Father , age 86 CHF (congestive heart failure) COPD (chronic obstructive pulmonary disease) Mother , age 83 Diabetes CHF (congestive heart failure) Social History: (Last Reviewed 11/30/20 @ 07:36 by Sobia Merino MD) Social History: longterm: Yes longterm comment: Shahana Marital status: lives independently: No household members: spouse current occupational status: retired Highest level of school completed/degree received: high school graduate Service: No Tobacco: Smoking Status: Never smoker second hand exposure: No Alcohol: alcohol intake: never Substance Use: substance use type: does not use Dietary Habits: caffeine: Yes caffeine comment: everyday Exercise: Physical activity type: none frequency: does not exercise Physical Exam - Physical Exam General Appearance: Present: wd/wn, alert, no apparent distress Head Exam: Present: normal inspection Eye Exam: Normal inspection: bilateral, PERRL: bilateral Ears, Nose, Throat: Present: normal except - - Mucous membranes are dry. Neck: Present: normal inspection, supple Respiratory: Present: no respiratory distress, lungs clear Cardiovascular/Chest: Present: regular rate, rhythm - Systolic murmur Gastrointestinal/Abdominal: Present: normal bowel sounds, soft - Bowel sounds are present, abdomen soft, nondistended. There is no specific pain with palpation. No masses palpated. No rebound guarding or signs of peritonitis. Extremity Exam: Present: normal inspection, no edema Skin Exam: Present: other - Skin is pale. Progress - Vital Signs Patient's Vital Signs:: I have reviewed the patient's vital signs. - Progress/Reassessment Chief Complaint: Rectal Bleeding Progress:: Unchanged Progress Note-Subjective: 11/30/20 07:39 pt is resting, vital signs stable. orders placed. cased discussed with oncoming physician, care transferred at 0800. - Transfer of Care Physician Sign Out: Sobia Merino Receiving Physician: Panda Kiran Pending Results: Labs, X-ray results Expected Disposition: Admit Departure Clinical Impression: GI bleed, Anemia - Departure Disposition: Still a patient Condition: Fair Referrals: Dayana Mccall MD [Primary Care Provider] - <Panda Kiran - Last Filed: 11/30/20 09:04> GI Bleeding/Rectal Pain ER Immunizations: IMMUNIZATION HX Immunizations Up to Date Yes History of Influenza Vaccine Yes Hx Pneumococcal Vaccination Yes Medical History (Last Reviewed 11/30/20 @ 07:35 by Sobia Merino MD) Has received influenza vaccination in current influenza season (Acute) Systolic murmur (Chronic) Urge incontinence (Chronic) Onset Date: Unknown Transverse myelitis (Chronic) Onset Date: 08/2016 Peripheral neuropathy (Chronic) Onset Date: Unknown Neuromyelitis optica (Chronic) Onset Date: 07/2016 U of I Mitral valve disorder (Chronic) Onset Date: 1993 prolapse Lesion of lumbar spine (Chronic) Onset Date: Unknown Arthritis (Chronic) Onset Date: 2011 Hypervitaminosis D (Chronic) Onset Date: 07/2017 Hemorrhoids (Chronic) Onset Date: Unknown 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 Chest wall contusion (Acute) Urinary tract infection (Chronic) Lower extremity weakness (Chronic) Weakness of lower extremity (Chronic) Spinal cord lesion (Acute) Saini catheter problem (Acute) Urinary tract infection associated with indwelling urethral catheter (Suspected) Urinary catheter (Saini) change required (Acute) UTI symptoms (Acute) hx of hemorrhoid surgery (Chronic) Dislodged Saini catheter (Acute) Paraplegia (Chronic) Onset Date: Unknown Osteoporosis (Chronic) Onset Date: Unknown Neurogenic bowel (Chronic) Onset Date: Unknown Macular degeneration (Chronic) Onset Date: Unknown Kyphosis (Chronic) Onset Date: Unknown IBS (irritable bowel syndrome) (Chronic) Onset Date: Unknown Hyperlipidemia (Chronic) Onset Date: Unknown UTI (urinary tract infection) (Chronic) Onset Date: Unknown Surgical History: Surgical History (Last Reviewed 11/30/20 @ 07:35 by Sobia Merino MD) FHx: FLETCHER-BSO (total abdominal hysterectomy and bilateral salpingo-oophorectomy) Onset Date: ~1986 H/O hemorrhoidectomy Onset Date: 1991 H/O laminectomy Onset Date: Unknown History of YAG laser capsulotomy of lens Onset Date: ~2008 Hx of appendectomy Onset Date: ~1986 Hx of cataract surgery Onset Date: ~2007 Hx of cholecystectomy Onset Date: 03/12/09 Loss of teeth due to extraction Onset Date: Unknown Family History: Family History (Last Reviewed 11/30/20 @ 07:35 by Sobia Merino MD) Father , age 86 CHF (congestive heart failure) COPD (chronic obstructive pulmonary disease) Mother , age 83 Diabetes CHF (congestive heart failure) Social History: (Last Reviewed 11/30/20 @ 07:36 by Sobia Merino MD) Social History: longterm: Yes longterm comment: Shahana Marital status: lives independently: No household members: spouse current occupational status: retired Highest level of school completed/degree received: high school graduate Service: No Tobacco: Smoking Status: Never smoker second hand exposure: No Alcohol: alcohol intake: never Substance Use: substance use type: does not use Dietary Habits: caffeine: Yes caffeine comment: everyday Exercise: Physical activity type: none frequency: does not exercise Progress - Results and Orders Patient's Lab Results:: I have reviewed the patient's lab results. - Vital Signs Patient's Vital Signs:: I have reviewed the patient's vital signs. Vital Signs: Vital Signs 11/30/20 07:25 11/30/20 08:16 11/30/20 08:22 Temperature 36.4 C Pulse Rate 94 100 111 H Respiratory Rate 16 30 H Blood Pressure 150/67 H 138/61 O2 Sat by Pulse Oximetry 100 100 - X-Ray X-Ray #1 X-Ray: abdomen Interpretation: Interp. by me X-ray Comments: I personally reviewed x-ray images as well as official radiology report - Progress/Reassessment Progress Note-Subjective: 11/30/20 09:00 I saw the patient, she feels much improved. Lab notified me that the blood will need to come from [place] because of an anti-I antibody, delaying transfusion. Lab spoke with [facility], they need to do the same with the blood as we do. Lab then called [facility] in [place], they do not have that blood availability either so there would be no benefit to transfer there. I was on the phone with [facility] and when the nurses told her that she stated she did not want to go to [facility]. She related she wanted to stay here and understands risks and benefits of that approach. She is a DNR but wants blood transfusion. She has had this happen before and has responded well to transfusion. I spoke with DR Wakefield who will admit. Will hold on CT at this time, abdomen benign at this point. Patient's healthcare POA was also notified. Please see Dr Wakefield's note for sahil H&P.
[2020-11-30] MEDS ORDERED: NORMAL SALINE 1,000 ML IV PRN (07:43)
[2020-11-30] MEDS: fentaNYL CITRATE/PF 50 MCG/ML AMPUL IV ONE ×3 (07:58→10:46)
[2020-11-30 08:07] LABS: Mean Cell Volume 82.8 fl (78-100); Mean Corpuscular Hemoglobin 23.7 pg (27-31); Mean Corpuscular Hgb Conc 28.6 g/dl (32-36); Mean Platelet Volume 11.1 fl (8-12.5); Neutrophil # 10.3 K/mm3 (1.3-6.0); Neutrophil % 73.6 % (42-75.0); Platelet Count 288 K/mm3 (150-450); Red Blood Count 2.74 M/mm3 (4.2-5.4)
[2020-11-30 08:10] LABS: Hematocrit 22.7 % (37.0-47.0); Hemoglobin 6.5 gm/dL (12.5-16.0)
[2020-11-30 08:28] LABS: INR 1.06 INR (0.92-1.08); Partial Thrombolplastin Time 23.1 Seconds (24-32)
[2020-11-30 08:36] LABS: ALT 13 U/L (19-67); AST 12 U/L (0-48); Albumin * 2.7 gm/dl (3.4-5.0); Alkaline Phosphatase * 71 U/L (50-170); Amylase * 136 U/L (25-115); Anion Gap 12.7 mmol/L (6.8-13.8); BUN/Creatinine Ratio 36.8 (9.0-21.6); Bilirubin, Total 0.1 mg/dL (0.0-1.1); Blood Urea Nitrogen 25 mg/dL (3-23); CK Total * 10 U/L (0-259); Calcium * 8.3 mg/dL (7.9-10.9); Chloride 107 mmol/L (97-106); Glucose * 150 mg/dL (70-110); Lipase 41 U/L (73-393); Potassium 4.7 mmol/L (3.4-4.6); Sodium 140 mmol/L (132-142); Total Protein 6.1 gm/dL (6.2-8.2); Troponin I Less than 0.017 ng/mL (0.00-0.10)
[2020-11-30 08:52] LABS: Urine Bilirubin Negative (NEGATIVE); Urine Blood Negative /ul (NEGATIVE); Urine Ketone Negative (NEGATIVE); Urine Nitrite Negative (NEGATIVE); Urine Protein Negative (NEGATIVE); Urine Urobilinogen Normal (NORMAL)
[2020-11-30 09:15] LABS: Urine Appearance Clear (CLEAR); Urine Bacteria TRACE; Urine Color Yellow; Urine Mucus TRACE; Urine RBC None Seen /hpf (0-5); Urine WBC None Seen /hpf (0-5)
[2020-11-30] MEDS ORDERED: fentaNYL CITRATE/PF 50 MCG/ML AMPUL IV ONE ×2 (09:59→10:41)
[2020-11-30] MEDS ORDERED: fentaNYL CITRATE/PF 50 MCG/ML AMPUL ONE (10:03)
--- NOTE | 2020-11-30 11:44 | HP ---
Chief Complaint - Chief Complaint Date of Service: 11/30/20 Time of Service: 11:44 Chief Complaint: rectal bleed History of Present Illness: Patient with PMHx of transverse myelitis, mitral valve prolapse, paraplegia, peripheral neuropathy, chronic kam, generalized weakness was having some diarrhea that turned bloody yesterday, and has been having abdominal pain. She is a resident of the [place]. She had something similar happen two months prior, and was admitted here from blood transfusion. Hgb was 6.5 today. Previously, she had antibodies that required a specific type of transfusion, and potential transfer was investigated, but she does not have those antibodies today. Her HR was briefly elevated to 114, but was mostly normal in the ED. BP has not been low, and RR has been also normal. We do not have surgical coverage this weekend, and she is aware, and would like to remain here for her care. Will admit for transfusion and resolution of her pain. Medical History (Last Reviewed 11/30/20 @ 12:49 by Shamika Hall RN) Has received influenza vaccination in current influenza season (Acute) Systolic murmur (Chronic) Urge incontinence (Chronic) Onset Date: Unknown Transverse myelitis (Chronic) Onset Date: 08/2016 Peripheral neuropathy (Chronic) Onset Date: Unknown Neuromyelitis optica (Chronic) Onset Date: 07/2016 U of I Mitral valve disorder (Chronic) Onset Date: 1993 prolapse Lesion of lumbar spine (Chronic) Onset Date: Unknown Arthritis (Chronic) Onset Date: 2011 Hypervitaminosis D (Chronic) Onset Date: 07/2017 Hemorrhoids (Chronic) Onset Date: Unknown 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 Chest wall contusion (Acute) Urinary tract infection (Chronic) Lower extremity weakness (Chronic) Weakness of lower extremity (Chronic) Spinal cord lesion (Acute) Kam catheter problem (Acute) Urinary tract infection associated with indwelling urethral catheter (Suspected) Urinary catheter (Kam) change required (Acute) UTI symptoms (Acute) hx of hemorrhoid surgery (Chronic) Dislodged Kam catheter (Acute) Paraplegia (Chronic) Onset Date: Unknown Osteoporosis (Chronic) Onset Date: Unknown Neurogenic bowel (Chronic) Onset Date: Unknown Macular degeneration (Chronic) Onset Date: Unknown Kyphosis (Chronic) Onset Date: Unknown IBS (irritable bowel syndrome) (Chronic) Onset Date: Unknown Hyperlipidemia (Chronic) Onset Date: Unknown UTI (urinary tract infection) (Chronic) Onset Date: Unknown Surgical History: Surgical History (Last Reviewed 11/30/20 @ 12:49 by Shamika Hall RN) FHx: FLETCHER-BSO (total abdominal hysterectomy and bilateral salpingo-oophorectomy) Onset Date: ~1986 H/O hemorrhoidectomy Onset Date: 1991 H/O laminectomy Onset Date: Unknown History of YAG laser capsulotomy of lens Onset Date: ~2008 Hx of appendectomy Onset Date: ~1986 Hx of cataract surgery Onset Date: ~2007 Hx of cholecystectomy Onset Date: 03/12/09 Loss of teeth due to extraction Onset Date: Unknown Family History: Family History (Last Reviewed 11/30/20 @ 12:50 by Shamika Hall RN) Father , age 86 COPD (chronic obstructive pulmonary disease) CHF (congestive heart failure) Mother , age 83 CHF (congestive heart failure) Diabetes Social History: (Last Reviewed 11/30/20 @ 07:39 by Rosalinda Clay RN) Social History: fpc: Yes fpc comment: Shahana Marital status: lives independently: No household members: spouse current occupational status: retired Highest level of school completed/degree received: high school graduate Service: No Tobacco: Smoking Status: Never smoker second hand exposure: No Alcohol: alcohol intake: never Substance Use: substance use type: does not use Dietary Habits: caffeine: Yes caffeine comment: everyday Exercise: Physical activity type: none frequency: does not exercise Review Of Systems (GEN) - Review of Systems Generalized/Overall Review: Present: Weakness Respiratory: Absent: Shortness of Breath Cardiac: Absent: Chest Pain Abdominal: Present: Abdominal Pain, Diarrhea, Bright blood from rectum Genitourinary: Present: No Symptoms Reported Immunizations: IMMUNIZATION HX Immunizations Up to Date Yes History of Influenza Vaccine Yes Hx Pneumococcal Vaccination Yes Allergies/Adverse Reactions: Allergies Allergy/AdvReac Type Severity Reaction Status Date / Time morphine Allergy Verified 11/30/20 07:39 Lactose intolerant Allergy Intermediate Uncoded 11/30/20 07:39 Home Medications: HOME MEDICATIONS Aspirin [Aspirin EC] 1 tab PO DAILY 01/22/18 [Last Taken 02/03/20] cranberry 400 mg capsule 1 cap PO DAILY 05/30/18 [Last Taken 11/30/20] lactobacillus combination no.8 3 billion cell capsule 3,000 mmu cells PO DAILY 09/21/19 [Last Taken 11/30/20] multivitamin 1 tab PO DAILY 09/21/19 [Last Taken 11/30/20] sennosides 8.6 mg tablet 2 tab PO HS PRN tab 01/25/20 [Last Taken 02/03/20] Gabapentin 200 mg PO HS 09/28/20 [Last Taken Unknown] Oxybutynin Chloride [Ditropan] 1 tab PO TID 09/28/20 [Last Taken Unknown] Gabapentin 1 tab PO QID 10/18/20 [Last Taken Unknown] Exam - Exam Vital Signs: Vital Signs - Last Taken Temp 36.4 C 11/30/20 07:25 Pulse 101 H 11/30/20 11:31 Resp 20 11/30/20 11:31 BP 112/40 11/30/20 11:31 Pulse Ox 95 11/30/20 11:31 Constitutional: Present: Alert, Cooperative, Other - appears uncomfortable, Elderly Respiratory: Present: lungs clear, normal breath sounds Cardiovascular/Chest: Present: regular rate, rhythm, systolic murmur - 3/6 Abdomen: Present: Normal bowel sounds, soft. Absent: tender Extremity: Absent: lower extremity edema Eye contact: Present: cooperative, good eye contact Diagnostic Studies: Abnormal Lab Results 11/30/20 11/30/20 11/30/20 Range/Units 07:57 07:57 07:57 WBC (4.0-10.5) K/mm3 RBC (4.2-5.4) M/mm3 Hgb (12.5-16.0) gm/dL Hct (37.0-47.0) % MCH (27-31) pg MCHC (32-36) g/dl RDW (11.5-14.0) % Immature Gran % (Auto) (0.001-0.429) % Immature Gran # (Auto) (0.000-0.0310) K/mm3 Lymphocytes % (20-51) % Monocytes % (0.0-9) % Neutrophils # (1.3-6.0) K/mm3 Monocytes # (0.0-1.0) k/mm3 PT 11.0 H (9.1-10.7) Seconds PTT (Geovany) 23.1 L (24-32) Seconds Potassium 4.7 H D (3.4-4.6) mmol/L Chloride 107 H (97-106) mmol/L BUN 25 H D (3-23) mg/dL BUN/Creatinine Ratio 36.8 H (9.0-21.6) Random Glucose 150 H (70-110) mg/dL ALT 13 L (19-67) U/L CK-MB (CK-2) Rel Index 5.0 H (0.0-3.6) Total Protein 6.1 L (6.2-8.2) gm/dL Albumin 2.7 L (3.4-5.0) gm/dl Amylase 136 H (25-115) U/L Lipase 41 L (73-393) U/L Crossmatch See Detail 11/30/20 Range/Units 07:57 WBC 14.0 H (4.0-10.5) K/mm3 RBC 2.74 L (4.2-5.4) M/mm3 Hgb 6.5 L* D (12.5-16.0) gm/dL Hct 22.7 L* D (37.0-47.0) % MCH 23.7 L (27-31) pg MCHC 28.6 L (32-36) g/dl RDW 22.0 H (11.5-14.0) % Immature Gran % (Auto) 0.60 H (0.001-0.429) % Immature Gran # (Auto) 0.09 H (0.000-0.0310) K/mm3 Lymphocytes % 13.2 L (20-51) % Monocytes % 10.3 H (0.0-9) % Neutrophils # 10.3 H (1.3-6.0) K/mm3 Monocytes # 1.4 H (0.0-1.0) k/mm3 PT (9.1-10.7) Seconds PTT ([place]) (24-32) Seconds Potassium (3.4-4.6) mmol/L Chloride (97-106) mmol/L BUN (3-23) mg/dL BUN/Creatinine Ratio (9.0-21.6) Random Glucose (70-110) mg/dL ALT (19-67) U/L CK-MB (CK-2) Rel Index (0.0-3.6) Total Protein (6.2-8.2) gm/dL Albumin (3.4-5.0) gm/dl Amylase (25-115) U/L Lipase (73-393) U/L Crossmatch Laboratory Results WBC 14.0 K/mm3 (4.0-10.5) H 11/30/20 07:57 RBC 2.74 M/mm3 (4.2-5.4) L 11/30/20 07:57 Hgb 6.5 gm/dL (12.5-16.0) L* D 11/30/20 07:57 Hct 22.7 % (37.0-47.0) L* D 11/30/20 07:57 MCV 82.8 fl (78-100) 11/30/20 07:57 MCH 23.7 pg (27-31) L 11/30/20 07:57 MCHC 28.6 g/dl (32-36) L 11/30/20 07:57 RDW 22.0 % (11.5-14.0) H 11/30/20 07:57 Plt Count 288 K/mm3 (150-450) 11/30/20 07:57 MPV 11.1 fl (8-12.5) 11/30/20 07:57 Immature Gran % (Auto) 0.60 % (0.001-0.429) H 11/30/20 07:57 Immature Gran # (Auto) 0.09 K/mm3 (0.000-0.0310) H 11/30/20 07:57 Neutrophils % 73.6 % (42-75.0) 11/30/20 07:57 Lymphocytes % 13.2 % (20-51) L 11/30/20 07:57 Monocytes % 10.3 % (0.0-9) H 11/30/20 07:57 Eosinophils % 1.9 % (0.0-3.0) 11/30/20 07:57 Basophils % 0.4 % (0.0-1.0) 11/30/20 07:57 Nucleated RBC % 0.0 k/mm3 (0-1) 11/30/20 07:57 Neutrophils # 10.3 K/mm3 (1.3-6.0) H 11/30/20 07:57 Lymphocytes # 1.84 k/mm3 (1.5-3.5) 11/30/20 07:57 Monocytes # 1.4 k/mm3 (0.0-1.0) H 11/30/20 07:57 Eosinophils # 0.3 k/mm3 (0.0-0.7) 11/30/20 07:57 Absolute Basophils 0.1 k/mm3 (0.0-0.1) 11/30/20 07:57 PT 11.0 Seconds (9.1-10.7) H 11/30/20 07:57 INR (Anticoag Therapy) 1.06 INR (0.92-1.08) 11/30/20 07:57 PTT (Geovany) 23.1 Seconds (24-32) L 11/30/20 07:57 Sodium 140 mmol/L (132-142) 11/30/20 07:57 Plasma Sodium 141 mmol/L (130-142) 11/30/20 07:57 Potassium 4.7 mmol/L (3.4-4.6) H D 11/30/20 07:57 Chloride 107 mmol/L (97-106) H 11/30/20 07:57 Carbon Dioxide 25.0 mmol/L (24-32.6) 11/30/20 07:57 Anion Gap 12.7 mmol/L (6.8-13.8) 11/30/20 07:57 BUN 25 mg/dL (3-23) H D 11/30/20 07:57 Creatinine 0.68 mg/dL (0.4-1.4) 11/30/20 07:57 Est GFR (Non-Af Amer) 87 mL/min (60-130) 11/30/20 07:57 BUN/Creatinine Ratio 36.8 (9.0-21.6) H 11/30/20 07:57 Random Glucose 150 mg/dL (70-110) H 11/30/20 07:57 Calcium 8.3 mg/dL (7.9-10.9) 11/30/20 07:57 Calcium Adj for Albumin 9.0 mg/dL (8.4-10.2) 11/30/20 07:57 Total Bilirubin 0.1 mg/dL (0.0-1.1) 11/30/20 07:57 AST 12 U/L (0-48) 11/30/20 07:57 ALT 13 U/L (19-67) L 11/30/20 07:57 Alkaline Phosphatase 71 U/L (50-170) 11/30/20 07:57 Creatine Kinase 10 U/L (0-259) 11/30/20 07:57 CK-MB (CK-2) Less than 0.5 ng/mL (0.0-9.0) 11/30/20 07:57 CK-MB (CK-2) Rel Index 5.0 (0.0-3.6) H 11/30/20 07:57 Troponin I Less than 0.017 ng/mL (0.00-0.10) 11/30/20 07:57 Total Protein 6.1 gm/dL (6.2-8.2) L 11/30/20 07:57 Albumin 2.7 gm/dl (3.4-5.0) L 11/30/20 07:57 Amylase 136 U/L (25-115) H 11/30/20 07:57 Lipase 41 U/L (73-393) L 11/30/20 07:57 Urine Color Yellow 11/30/20 08:45 Urine Appearance Clear (CLEAR) 11/30/20 08:45 Urine pH 6.0 pH (5.0-7.0) 11/30/20 08:45 Ur Specific [place] 1.020 SP.GR. (1.005-1.010) 11/30/20 08:45 Urine Protein Negative mg/dL (NEGATIVE) 11/30/20 08:45 Urine Glucose (UA) Negative mg/dL (NEGATIVE) 11/30/20 08:45 Urine Ketones Negative mg/dL (NEGATIVE) 11/30/20 08:45 Urine Blood Negative /ul (NEGATIVE) 11/30/20 08:45 Urine Nitrate Negative (NEGATIVE) 11/30/20 08:45 Urine Bilirubin Negative mg/dl (NEGATIVE) 11/30/20 08:45 Urine Urobilinogen Normal EU/dl (NORMAL) 11/30/20 08:45 Ur Leukocyte Esterase Negative /ul (NEGATIVE) 11/30/20 08:45 Urine RBC None seen /hpf (0-5) 11/30/20 08:45 Urine WBC None seen /hpf (0-5) 11/30/20 08:45 Ur Epithelial Cells None seen /hpf (0-5) 11/30/20 08:45 Urine Bacteria Trace (NONE) 11/30/20 08:45 Urine Mucus Trace (NONE) 11/30/20 08:45 Urine Culture Comments No culture indicated 11/30/20 08:45 SARS-CoV-2 (PCR) Not detected (NotDetected) 11/30/20 09:04 Blood Type A Positive 11/30/20 07:57 Antibody Screen Negative 11/30/20 07:57 Crossmatch See Detail 11/30/20 07:57 Assessment/Plan - Narrative Narrative: Will administer 1 U PRBC and check H&H one hour later. If her abdominal pain does not resolve, will obtain CT. If there are concerning findings on the CT, if done, will need to transfer as we have no surgery coverage currently. Will also need to transfer if she continues to have bleeding. Will stop her aspirin, and allow sips of water currently, but will be NPO until pain improved and hemoglobin stabilizes. She does not have significant abnormalities of her vitals. She has declined endoscopy in the past, and will need to ask again when she is not feeling as uncomfortable. - Assessment/Plan (1) GI bleed Problem: Acute Qualifiers: GI bleed type/associated pathology: melena Qualified Code(s): K92.1 - Melena (2) Symptomatic anemia Problem: Resolved (3) Generalized weakness Problem: Acute (4) Chronic indwelling Kam catheter Problem: Chronic (5) Transverse myelitis Problem: Chronic (6) Peripheral neuropathy Problem: Chronic Qualifiers: Peripheral neuropathy type: polyneuropathy, unspecified Qualified Code(s): G62.9 - Polyneuropathy, unspecified (7) Mitral valve disorder Problem: Chronic
[2020-11-30] MEDS ORDERED: ACETAMINOPHEN 325 MG TABLET PO PRN (13:38)
[2020-11-30] MEDS: GABAPENTIN 400 MG CAPSULE PO SCH ×2 (16:40→20:14)
[2020-11-30 16:58] LABS: Hematocrit 19.6 % (37.0-47.0); Hemoglobin 5.9 gm/dL (12.5-16.0)
[2020-11-30 17:19] LABS: Hematocrit 19.5 % (37.0-47.0); Hemoglobin 5.9 gm/dL (12.5-16.0)
[2020-11-30] MEDS ORDERED: PANTOPRAZOLE SODIUM 40 MG in NORMAL SALINE 100 ML IV SCH (17:30)
--- NOTE | 2020-11-30 18:04 | PN ---
Progesrafael Note - Interim Date: 11/30/20 Time: 17:59 Narrative: 11/30/20 17:59 Hemoblobin is 5.9 after 1 U PRBC, verified on repeat. She is passing clots per rectum. Reassessed patient, who is pale on exam. Daughter Ne is medical POA and also in room. HR is around 100. Discussed status with her and offered transfer, but she'd prefer to stay here. 2 U PRBC and Protonix have been ordered. Discussed risks of staying here without surgery available, as an upper or lower endoscopy may be needed to stop her bleed. If hemoglobin continues to decrease or not improve with 2 units, will more strongly recommend transfer.
--- NOTE | 2020-11-30 19:49 | PN ---
Bessy Note - Interim Date: 11/30/20 Time: 19:48 Narrative: 11/30/20 19:48 Patient continues to pass clots. HR and respiratory rate are increasing. Currently receiving her 3rd U PRBC. She now agrees to transfer, so will start the process to transfer to [facility].
--- NOTE | 2020-11-30 20:57 | DS ---
Transfer Discharge Summary - Diagnosis(s)/Problems (1) GI bleed Problem: Acute (2) Symptomatic anemia Problem: Acute (3) Generalized weakness Problem: Acute (4) Chronic indwelling Kam catheter Problem: Chronic (5) Transverse myelitis Problem: Chronic (6) Peripheral neuropathy Problem: Chronic (7) Mitral valve disorder Problem: Chronic - Course Description of Stay: Patient with PMHx of transverse myelitis, mitral valve prolapse, paraplegia, peripheral neuropathy, chronic kam, generalized weakness was having some diarrhea that turned bloody on 11/29/20, and has been having abdominal pain. She is a resident of the [facility]. She had something similar happen two months prior, and was admitted here from blood transfusion. Hgb was 6.5 on admission. Previously, she had antibodies that required a specific type of transfusion, and potential transfer was investigated, but she does not have those antibodies today. BP has not been low, and RR was been also normal initially. We do not have surgical coverage this weekend, and she is aware, but wanted to remain here for her care. She was given one U PRBC, and hemoglobin decreased to 5.9, verified on repeat. Two additional units and protonix IV were ordered. Throughout the afternoon, she continued to pass clots. Her heart rate and respiratory rates started to increase to 110's and 20's respectively, and she seemed more somnolent on exam. With no surgical coverage, the decision was made to transfer for possible upper and lower endoscopy, and she agreed. She was accepted at [facility] via Dr. Townsend. Procedures Performed: none - Results and Findings Results and Findings: Laboratory Results - last 24 hr 11/30/20 11/30/20 11/30/20 07:57 07:57 07:57 WBC RBC Hgb Hct MCV MCH MCHC RDW Plt Count MPV Immature Gran % (Auto) Immature Gran # (Auto) Neutrophils % Lymphocytes % Monocytes % Eosinophils % Basophils % Nucleated RBC % Neutrophils # Lymphocytes # Monocytes # Eosinophils # Absolute Basophils PT 11.0 H INR (Anticoag Therapy) 1.06 PTT ([place]) 23.1 L Sodium 140 Plasma Sodium 141 Potassium 4.7 H D Chloride 107 H Carbon Dioxide 25.0 Anion Gap 12.7 BUN 25 H D Creatinine 0.68 Est GFR (Non-Af Amer) 87 BUN/Creatinine Ratio 36.8 H Random Glucose 150 H Calcium 8.3 Calcium Adj for Albumin 9.0 Total Bilirubin 0.1 AST 12 ALT 13 L Alkaline Phosphatase 71 Creatine Kinase 10 CK-MB (CK-2) Less than 0.5 CK-MB (CK-2) Rel Index 5.0 H Troponin I Less than 0.017 Total Protein 6.1 L Albumin 2.7 L Amylase 136 H Lipase 41 L Urine Color Urine Appearance Urine pH Ur Specific Bath Urine Protein Urine Glucose (UA) Urine Ketones Urine Blood Urine Nitrate Urine Bilirubin Urine Urobilinogen Ur Leukocyte Esterase Urine RBC Urine WBC Ur Epithelial Cells Urine Bacteria Urine Mucus Urine Culture Comments SARS-CoV-2 (PCR) Blood Type A Positive Antibody Screen Negative Crossmatch See Detail 11/30/20 11/30/20 11/30/20 07:57 08:45 09:04 WBC 14.0 H RBC 2.74 L Hgb 6.5 L* D Hct 22.7 L* D MCV 82.8 MCH 23.7 L MCHC 28.6 L RDW 22.0 H Plt Count 288 MPV 11.1 Immature Gran % (Auto) 0.60 H Immature Gran # (Auto) 0.09 H Neutrophils % 73.6 Lymphocytes % 13.2 L Monocytes % 10.3 H Eosinophils % 1.9 Basophils % 0.4 Nucleated RBC % 0.0 Neutrophils # 10.3 H Lymphocytes # 1.84 Monocytes # 1.4 H Eosinophils # 0.3 Absolute Basophils 0.1 PT INR (Anticoag Therapy) PTT ([place]) Sodium Plasma Sodium Potassium Chloride Carbon Dioxide Anion Gap BUN Creatinine Est GFR (Non-Af Amer) BUN/Creatinine Ratio Random Glucose Calcium Calcium Adj for Albumin Total Bilirubin AST ALT Alkaline Phosphatase Creatine Kinase CK-MB (CK-2) CK-MB (CK-2) Rel Index Troponin I Total Protein Albumin Amylase Lipase Urine Color Yellow Urine Appearance Clear Urine pH 6.0 Ur Specific Bath 1.020 Urine Protein Negative Urine Glucose (UA) Negative Urine Ketones Negative Urine Blood Negative Urine Nitrate Negative Urine Bilirubin Negative Urine Urobilinogen Normal Ur Leukocyte Esterase Negative Urine RBC None seen Urine WBC None seen Ur Epithelial Cells None seen Urine Bacteria Trace Urine Mucus Trace Urine Culture Comments No culture indicated SARS-CoV-2 (PCR) Not detected Blood Type Antibody Screen Crossmatch 11/30/20 11/30/20 16:48 17:13 WBC RBC Hgb 5.9 L* 5.9 L* Hct 19.6 L* 19.5 L* MCV MCH MCHC RDW Plt Count MPV Immature Gran % (Auto) Immature Gran # (Auto) Neutrophils % Lymphocytes % Monocytes % Eosinophils % Basophils % Nucleated RBC % Neutrophils # Lymphocytes # Monocytes # Eosinophils # Absolute Basophils PT INR (Anticoag Therapy) PTT (Geovany) Sodium Plasma Sodium Potassium Chloride Carbon Dioxide Anion Gap BUN Creatinine Est GFR (Non-Af Amer) BUN/Creatinine Ratio Random Glucose Calcium Calcium Adj for Albumin Total Bilirubin AST ALT Alkaline Phosphatase Creatine Kinase CK-MB (CK-2) CK-MB (CK-2) Rel Index Troponin I Total Protein Albumin Amylase Lipase Urine Color Urine Appearance Urine pH Ur Specific Bath Urine Protein Urine Glucose (UA) Urine Ketones Urine Blood Urine Nitrate Urine Bilirubin Urine Urobilinogen Ur Leukocyte Esterase Urine RBC Urine WBC Ur Epithelial Cells Urine Bacteria Urine Mucus Urine Culture Comments SARS-CoV-2 (PCR) Blood Type Antibody Screen Crossmatch - Medications Medications: Active Medications Acetaminophen (Acetaminophen 325 Mg Tablet) 325 mg PO Q6H PRN PRN Reason: Mild pain (pain scale 1-3) Stop: 12/30/20 13:39 Last Admin: 11/30/20 14:54 Dose: 325 mg Documented by: Gabapentin (Gabapentin 400 Mg Capsule) 800 mg PO QID [facility] Stop: 12/30/20 17:01 Last Admin: 11/30/20 20:14 Dose: 800 mg Documented by: Gabapentin (Gabapentin 100 Mg Capsule) 200 mg PO HS [facility] Stop: 12/30/20 21:01 Last Admin: 11/30/20 20:15 Dose: 200 mg Documented by: Sodium Chloride (Sodium Chloride 0.9%) 1,000 mls @ 999 mls/hr IV .Q1H1M PRN PRN Reason: HYDRATION Stop: 12/30/20 07:44 Last Infusion: 11/30/20 16:53 Dose: Infused Documented by: Pantoprazole Sodium 40 mg/ (Sodium Chloride) 100 mls @ 400 mls/hr IV Q24H [facility] Stop: 12/30/20 17:31 Last Infusion: 11/30/20 19:32 Dose: Infused Documented by: Discontinued Medications Fentanyl Citrate (Fentanyl Citrate/Pf 50 Mcg/Ml Ampul) 25 mcg IV ONCE ONE Stop: 11/30/20 07:54 Last Admin: 11/30/20 10:46 Dose: 25 mcg Documented by: Fentanyl Citrate (Fentanyl Citrate/Pf 50 Mcg/Ml Ampul) 25 mcg IV ONCE ONE Stop: 11/30/20 10:00 Last Admin: 11/30/20 10:11 Dose: Not Given Documented by: Fentanyl Citrate (Fentanyl Citrate/Pf 50 Mcg/Ml Ampul) 25 mcg IV ONCE ONE Stop: 11/30/20 10:42 Last Admin: 11/30/20 10:47 Dose: Not Given Documented by: - Disposition Disposition: Short Term Hospital Inpatient Condition: Serious Discharge Date: 11/30/20
[2020-11-30] MEDS ORDERED: GABAPENTIN 100 MG CAPSULE PO SCH (21:00)
[2020-11-30 21:42] VITALS: BP 141/53
== END 2020-11-30 21:40 | disposition short-term general hospital (02) ==
LOC: ER 07:25 → MS 07:25
PROVIDERS: ADMIT Family Medicine; ATTEND Internal Medicine